=== PATIENT | female | born 1950 | race Caucasian/White ===

== ENCOUNTER 2018-06-13 21:54 | Emergency (ER) | payer OTHER ==
[~2018-06-13] VITALS: Ht 160 cm; Wt 61.1 kg
[2018-06-13 22:02] VITALS: TEMP 36.7; Ht 160 cm; Wt 61.1 kg
--- NOTE | 2018-06-13 22:39 | EMERGENCY ROOM VISIT NOTE ---
ED Visit Note First contact with patient: 22:08 I did evaluate and examine this patient myself. I did guide management for the patient. I agree with the PA's assessment as discussed. Please see the PAs dictation for further details. The patient was bitten by a stray cat on the index finger. She states that the stray cat was acting funny. She has some soft tissue swelling to the finger but no signs of overt infection. She was started on rabies immunoglobulin and a vaccination series. She was discharged on Augmentin.
[2018-06-13] MEDS ORDERED: ASPI81TA28 PO (22:42)
[2018-06-13] MEDS ORDERED: LIDODERM TOP (22:42)
[2018-06-13] MEDS ORDERED: ATOR-24 PO (22:42)
[2018-06-13] MEDS ORDERED: RANI150T3 PO (22:42)
[2018-06-13] MEDS ORDERED: CITA40TA12 PO (22:42)
[2018-06-13] MEDS ORDERED: ACET1TAB84 PO (22:42)
[2018-06-13] MEDS ORDERED: GABA-112 PO (22:42)
[2018-06-13] MEDS ORDERED: AMOX875T PO (22:44)
[2018-06-13] MEDS ORDERED: AMOXICIL/CLAVU 875MG HOME PACK PO ONE (22:45)
[2018-06-13] MEDS ORDERED: RABIES VACCINE (IMOVAX) HUMAN DIPL CELL 2.5 INTER.UNIT/ML SYR IM. ONE (22:45)
[2018-06-13] MEDS ORDERED: RABIES IMMUNE GLOBULIN (HUMAN) 150 INTER.UNIT/ML 2 ML VIAL IM. ONE (22:45)
[2018-06-13] MEDS ORDERED: DIPHTHERIA/TETANUS/PERTUSSIS 0.5 ML SYR/VIAL IM. ONE (22:45)
[2018-06-13 23:20] VITALS: BP 165/90; PULSE 67; O2SAT 97
--- NOTE | 2018-06-14 01:52 | EMERGENCY ROOM VISIT NOTE ---
History First contact with patient: 22:08 Chief Complaint: BITE Stated Complaint: BITE BY STRAY CAT History of Present Illness The patient is a 68 year old female who presents to the Emergency Room with complaints of a cat bite to her right index finger. The patient reports that she was bitten by a stray cat at a neighbor's house last night. She reports that the bite did not break the skin, but does not recall if there was any saliva on the finger. She reports that the cat was emaciated, and was walking in circles. She reports that she has multiple cats at home, and reports that the cat was exhibiting unusual behavior. When she called her neighbor this afternoon, the cat had not been back. The patient's [id number] is an ED nurse, and recommend that she come to the emergency department for evaluation for possible rabies postexposure prophylaxis. Tetanus immunization is up-to- date. The patient reports only minimal discomfort of the fingertip. She denies any prior rabies immunizations. The patient is uncertain of her last tetanus immunization. The patient is right-hand dominant. Review of Systems 10 system review was performed and was negative except for pertinent positives and negatives as indicated in history of present illness Past Medical/Surgical History Medical Problems: (1) Depression (2) Hypercholesterolemia Family History Unremarkable Social History Smoking Status: Current Every Day Smoker Current/Historical Medications Scheduled Amoxicillin & Pot Clavulanate (Augmentin 875-125 mg), 1 TAB PO BID Aspirin (Aspirin Ec), 162 MG PO DAILY Atorvastatin (Lipitor), 40 MG PO DAILY Citalopram Hydrobromide (Celexa), 40 MG PO DAILY [Lidoderm], 1 PATCH TOP DAILY Scheduled PRN Acetaminophen (Tylenol Arthritis Ext Rel), 650 MG PO BID PRN for Pain Gabapentin (Neurontin), 100 MG PO TID PRN for PRN Ranitidine Hcl (Zantac), 150 MG PO TID PRN for PRN Physical Exam Vital Signs Date Time Temp Pulse Resp B/P (MAP) Pulse Ox O2 Delivery O2 Flow Rate FiO2 06/13/18 23:20 67 16 165/90 97 Room Air 06/13/18 22:02 36.7 70 18 176/84 98 Room Air Physical Exam CONSTITUTIONAL: Healthy and well nourished. Alert and oriented X 3 with positive affect. Patient does not appear in any acute distress. HEENT: Normocephalic, atraumatic. Pupils equal, round and reactive. NECK: Full active range of motion without discomfort. RESPIRATORY: Clear to auscultation bilaterally with no wheezing, crackles, rhonchi or stridor. CARDIOVASCULAR: Regular rate and rhythm with no murmurs, rubs or gallops. MUSCULOSKELETAL: Examination of the right index fingertip shows mild edema without any overriding erythema. Close exam using an otoscope does not show any obvious puncture wounds. No ecchymosis or nail trauma noted. Capillary refill is less than 2 seconds. INTEGUMENTARY: No rash or other significant dermatologic conditions noted. NEUROLOGIC: Right index fingertip is sensory intact. Medical Decision & Procedures Medications Administered Medications (Trade) Dose Ordered Sig/Ciara Route Start Time Stop Time Status Last Admin Dose Admin Diphtheria/ Pertussis/Tetanus Vacc (Adacel Inj) 0.5 ml ONCE ONCE IM. 06/13/18 22:45 06/13/18 22:46 DC 06/13/18 23:15 0.5 ML Rabies Vaccine Human Diploid Cell (Imovax Rabies) 2.5 interunit ONCE ONCE IM. 06/13/18 22:45 06/13/18 22:46 DC 06/13/18 23:18 2.5 INTERUNIT Rabies Immune Globulin (Imogam Rabies Inj) 1,222 interunit ONCE ONCE IM. 06/13/18 22:45 06/13/18 22:46 DC 06/13/18 22:45 1,222 INTERUNIT Amoxicillin/ Clavulanate Potassium (Augmentin 875MG Home Pack) 1 homepack UD ONCE PO 06/13/18 22:45 06/13/18 22:46 DC 06/13/18 23:15 1 HOMEPACK ED Course Patient history and physical exam were performed. Nurse's notes were reviewed. Vital signs were reviewed and were normal. Although the patient does not have any evidence for puncture wounds on the fingertip, I did discuss concern with the cat's behavior, and being a feral cat, is at high risk for rabies. I also explained that exposure to the saliva is also high risk for rabies infection. I therefore recommended the post exposure prophylaxis series. The patient was provided education regarding the injection series, and risks of not proceeding if indeed she does have the infection. The patient agrees that the immunization series is in her best interest. The patient was administered Imovax and human rabies immunoglobulin 20 units/kg without adverse reaction. She was also administered Adacel IM. The patient was instructed to return on days 3, 7 and 14, sooner with any adverse reaction. The patient was also seen and examined by Dr. Rollins, ED attending physician, who also recommended Augmentin treatment. She was provided a home pack and prescription for Augmentin. The patient was happy with plan of care, voiced understanding of all discharge instructions, and denied any significant discomfort at the time of discharge. Medical Decision See previous section Blood Pressure Screening Patient's blood pressure: Elevated blood pressure Blood pressure disposition: Elevated BP felt to be situational, Did not require urgent referral Impression Primary Impression: Rabies, need for prophylactic vaccination against Additional Impression: Cat bite Departure Information Dispostion Home / Self-Care Condition FAIR Prescriptions Amoxicillin & Pot Clavulanate (Augmentin 875-125 mg) 1 Tab Tab 1 TAB PO BID for 4 Days, #8 TAB Prov: Dave Cagle PA 06/13/18 Referrals Jon Carrasco M.D. (PCP) Forms HOME CARE DOCUMENTATION FORM, IMPORTANT VISIT INFORMATION Patient Instructions My [facility] Additional Instructions Return on the following dates for your next Imovax injections: 06/16 Take Augmentin antibiotics as prescribed. Problem Qualifiers Additional Impression: Cat bite Encounter type: initial encounter Qualified Codes: W55.01XA - Bitten by cat , initial encounter
== END 2018-06-13 23:37 | disposition home or self-care (01) ==
LOC: C.EDB 21:55 → C.EDC 23:37
DX: S60.470A Other superficial bite of right index finger, initial encounter (principal); Z20.3 Contact with and (suspected) exposure to rabies; Z23 Encounter for immunization; W55.01XA Bitten by cat, initial encounter; Z79.82 Long term (current) use of aspirin; E78.00 Pure hypercholesterolemia, unspecified; F32.9 Major depressive disorder, single episode, unspecified; F17.200 Nicotine dependence, unspecified, uncomplicated

== ENCOUNTER 2018-06-16 11:49 | Emergency (ER) | payer OTHER ==
[~2018-06-16] VITALS: Ht 160 cm; Wt 62.3 kg
[~2018-06-16 11:49] MED LIST: ACET1TAB84 PO; AMOX875T PO; ASPI81TA28 PO; ATOR-24 PO; CITA40TA12 PO; GABA-112 PO; LIDODERM TOP; RANI150T3 PO
[2018-06-16 12:02] VITALS: TEMP 36.7; Ht 160 cm; Wt 62.3 kg
[2018-06-16] MEDS ORDERED: PROM12.57 PO (12:29)
[2018-06-16] MEDS ORDERED: RABIES VACCINE (IMOVAX) HUMAN DIPL CELL 2.5 INTER.UNIT/ML SYR IM. ONE (12:30)
[2018-06-16 13:10] VITALS: BP 129/75; PULSE 60; O2SAT 99
--- NOTE | 2018-06-17 15:45 | EMERGENCY ROOM VISIT NOTE ---
ED Visit Note First contact with patient: 12:06 Chief Complaint: Rabies Immunization Return Visit. History of Present Illness: Ms. Foss is a 68 year-old female who ambulates into the ED requesting her second rabies immunization after an exposure. She reports she tolerated her previous immunizations well and had no affects or symptoms. Additional she reports she is feeling well to day and denies headache , dizziness, lightheadedness, fevers, chills, sweats, skin eruptions, chest pain , shortness of breath, abdominal pain, nausea, vomiting, extremity pain, joint pain. Review of Symptoms: As noted above. Past Medical History, Current Medications, Allergies and Social History: As noted on previous visit. Physical Exam: VITAL SIGNS - Date Time Temp Pulse Resp B/P (MAP) Pulse Ox O2 Delivery O2 Flow Rate FiO2 06/16/18 13:10 60 19 129/75 99 06/16/18 12:02 36.7 64 18 134/71 98 Room Air GENERAL - Patient is in no acute distress, non-toxic appearing, afebrile and hemodynamic stable. NEUROLOGICAL: Awake, alert and oriented X3. Answering questions appropriately and following commands. SKIN - Warm, dry and pink. ED Course: Patient is assessed as noted above. Previous ED visit note was reviewed. Patient was give 2.5 units of rabies immunization IM. Patient was reassessed and had no additional symptoms. Patient was educated about today's finding and instructed on their treatment plan; they verbalized understanding and agreement with this plan. Clinical Impression: Rabies Prophylaxis. Disposition: Patient discharged to home in stable condition; prior to discharge patient subjectively reported she was asymptomatic. Plan: Patient was encouraged to continue her current treatment plan and treatment schedule as previously defined. Patient was encouraged to follow-up with family care physician or return to the ED for any adverse effects or any new/concerning symptoms.
== END 2018-06-16 13:10 | disposition home or self-care (01) ==
LOC: C.EDB 11:50 → C.EDD 13:10
DX: Z23 Encounter for immunization (principal); Z20.3 Contact with and (suspected) exposure to rabies

== ENCOUNTER 2018-06-20 11:35 | Emergency (ER) | payer OTHER ==
[~2018-06-20 11:35] MED LIST changes: -AMOX875T PO; +PROM12.57 PO
[2018-06-20] MEDS ORDERED: RABIES VACCINE (IMOVAX) HUMAN DIPL CELL 2.5 INTER.UNIT/ML SYR IM. ONE (12:00)
--- NOTE | 2018-06-20 12:11 | EMERGENCY ROOM VISIT NOTE ---
ED Visit Note First contact with patient: 11:44 CHIEF COMPLAINT: Needs third rabies vaccine HISTORY OF PRESENT ILLNESS: This 68-year-old female presents to ER for her third rabies vaccine. The patient states with the prior to vaccines she got a slight headache and nausea. She was given an antinausea medicine which she takes as needed. The patient states that she completed the antibiotics that were initially given for the Plate on her right index finger. She states the finger has healed well. REVIEW OF SYSTEMS: 6 system review was performed and was negative unless stated otherwise in history of present illness. PMH: The patient is healthy; the patient's problem list was reviewed and there are no changes. SOCIAL HISTORY: Patient lives with her . PHYSICAL EXAM: Vital Signs: Were reviewed reviewed Nurse's notes. GENERAL: 68- year-old white female appears in no acute distress. MENTAL Status: Alert and oriented 3. RIGHT INDEX FINGER: No visible puncture wound or any erythema or edema noted. EMERGENCY DEPARTMENT COURSE: The patient was evaluated. The patient was given Imovax. The patient was discharged to home in stable condition. DIAGNOSIS: Post exposure rabies prophylaxis DISCHARGE INSTRUCTIONS: Return to ER as previously directed on your prior rabies vaccine schedule. Current/Historical Medications Scheduled Aspirin (Aspirin Ec), 162 MG PO DAILY Atorvastatin (Lipitor), 40 MG PO DAILY Citalopram Hydrobromide (Celexa), 40 MG PO DAILY [Lidoderm], 1 PATCH TOP DAILY Scheduled PRN Acetaminophen (Tylenol Arthritis Ext Rel), 650 MG PO BID PRN for Pain Gabapentin (Neurontin), 100 MG PO TID PRN for PRN Promethazine (Phenergan ), 1-2 TABS PO Q6H PRN for Nausea or Vomiting Ranitidine Hcl (Zantac), 150 MG PO TID PRN for PRN Allergies Coded Allergies: Codeine (Unverified Allergy, Severe, ., 06/13/18) VERY SLEEPY AND "SEES THINGS" Vital Signs Date Time Temp Pulse Resp B/P (MAP) Pulse Ox O2 Delivery O2 Flow Rate FiO2 06/20/18 11:43 36.5 62 20 153/84 96 Room Air Medications Administered Medications (Trade) Dose Ordered Sig/Ciara Route Start Time Stop Time Status Last Admin Dose Admin Rabies Vaccine Human Diploid Cell (Imovax Rabies) 2.5 interunit ONCE ONCE IM. 06/20/18 12:00 06/20/18 12:01 DC 06/20/18 12:01 2.5 INTERUNIT Departure Information Impression Primary Impression: Rabies, need for prophylactic vaccination against Dispostion Home / Self-Care Condition GOOD Referrals Jon Carrasco M.D. (PCP) Forms WORK / SCHOOL INSTRUCTIONS, HOME CARE DOCUMENTATION FORM, IMPORTANT VISIT INFORMATION Patient Instructions My [facility] Additional Instructions Continue following rabies vaccine schedule. Return to ER as previously directed.
[2018-06-20 12:21] VITALS: BP 145/78; PULSE 61; TEMP 36.5; O2SAT 96
== END 2018-06-20 12:22 | disposition home or self-care (01) ==
LOC: C.EDB 11:36 → C.EDD 12:22
DX: Z20.3 Contact with and (suspected) exposure to rabies (principal); Z23 Encounter for immunization; Z79.82 Long term (current) use of aspirin; Z79.899 Other long term (current) drug therapy; Z88.5 Allergy status to narcotic agent

== ENCOUNTER 2018-06-27 13:48 | Emergency (ER) | payer OTHER ==
[~2018-06-27] VITALS: Ht 160 cm; Wt 62.0 kg
[~2018-06-27 13:48] MED LIST changes: -PROM12.57 PO
[2018-06-27 13:50] VITALS: TEMP 36.8; Ht 160 cm; Wt 62.0 kg
[2018-06-27] MEDS ORDERED: RABIES VACCINE (IMOVAX) HUMAN DIPL CELL 2.5 INTER.UNIT/ML SYR IM. ONE (14:00)
--- NOTE | 2018-06-27 14:02 | EMERGENCY ROOM VISIT NOTE ---
ED Visit Note First contact with patient: 13:54 CHIEF COMPLAINT: Rabies shot #4 HISTORY OF PRESENT ILLNESS: Patient is a 68-year-old female who returns to the emergency department as advised for her fourth and final rabies vaccination. She was bitten by a stray cat 2 weeks ago. She has previously noted headaches, nausea and fatigue associated with the injections. About 3 days ago, she developed some tender swelling in the left side of her neck. She has been on soup, ate a cooked egg this morning. The swelling has gone down. She denies any upper respiratory symptoms or dental source of the discomfort. REVIEW OF SYSTEMS: Review of systems as per HPI. All other systems reviewed were negative. At least 6 systems reviewed. PMH: Electronic medical records are reviewed and summarized as above/below. See Problem List. SOCIAL HISTORY: Patient lives at home. PHYSICAL EXAM: Vital Signs: Reviewed Nurse's notes. HEAD: Atraumatic, without temporal or scalp tenderness. EYES: PERRL, EOMI, no discharge or injection. SKIN: Right finger without signs of infection. LYMPHATICS: No palpable lymphadenopathy appreciated in the left cervical region. No erythema, increased warmth or induration. NEUROLOGICAL: Alert and cooperative. Sensory and motor functions grossly intact. EMERGENCY DEPARTMENT COURSE: The patient was given Imovax IM, observed and then discharged. Is unclear to me whether the soreness in the left side of her neck is related to the vaccinations or some other etiology. She was given her final vaccination and encouraged to watch for any changes in her condition was welcome to return to the emergency department at any point if her symptoms change. Medication reconciliation: I attest that I have personally reviewed the patient' s current medication list. Blood pressure screening : Patient was found to have normal blood pressure on screening and does not require follow-up. Current/Historical Medications Scheduled Aspirin (Aspirin Ec), 162 MG PO DAILY Atorvastatin (Lipitor), 40 MG PO DAILY Citalopram Hydrobromide (Celexa), 40 MG PO DAILY [Lidoderm], 1 PATCH TOP DAILY Scheduled PRN Acetaminophen (Tylenol Arthritis Ext Rel), 650 MG PO BID PRN for Pain Gabapentin (Neurontin), 100 MG PO TID PRN for PRN Ranitidine Hcl (Zantac), 150 MG PO TID PRN for PRN Allergies Coded Allergies: Codeine (Unverified Allergy, Severe, ., 06/13/18) VERY SLEEPY AND "SEES THINGS" Vital Signs Date Time Temp Pulse Resp B/P (MAP) Pulse Ox O2 Delivery O2 Flow Rate FiO2 06/27/18 13:50 36.8 66 18 148/87 95 Room Air Departure Information Impression Primary Impression: Rabies, need for prophylactic vaccination against Referrals Jon Carrasco M.D. (PCP) Patient Instructions [facility]
[2018-06-27] MEDS ORDERED: LDDP5 TOP (14:16)
[2018-06-27 14:31] VITALS: BP 180/88; PULSE 66; O2SAT 95
== END 2018-06-27 14:31 | disposition home or self-care (01) ==
LOC: C.EDB 13:49 → C.EDD 14:31
DX: Z23 Encounter for immunization (principal); Z20.3 Contact with and (suspected) exposure to rabies; Z79.82 Long term (current) use of aspirin; Z88.5 Allergy status to narcotic agent

== ENCOUNTER 2021-06-06 08:10 | Inpatient (IN) ==
[2021-06-06] MEDS ORDERED: SODIUM CHLORIDE 0.9% 1000ML 1,000 ML IV SCH (08:30)
--- NOTE | 2021-06-06 08:46 | Communication Note ---
Date of Service: June 06, 2021 This patient was seen in concert with Dr. eKlly and we discussed and agreed upon the history, physical, assessment, and plan. See attending's note for details. Resident Activity Tracking Resident Involvement: Resident Care Provided Care Provided: Adult ED
[2021-06-06 09:08] LABS: Prothrombin Time 9.7 Seconds (9.0-12.0)
[2021-06-06 09:10] LABS: Hematocrit (blood only) 24.4 % (37-47); Hemoglobin 6.8 g/dL (12.0-16.0); Mean Corpuscular Hemoglobin 20.5 pg (25-34); Mean Corpuscular Hgb Conc 27.9 g/dL (32-36); Mean Corpuscular Volume 73.7 fL (80-100); Platelet Count 305 K/uL (130-400); RDW Coefficient of Variation 19.1 % (11.5-14.5); Red Blood Count 3.31 M/uL (4.2-5.4); White Blood Count 4.74 K/uL (4.8-10.8)
[2021-06-06] MEDS ORDERED: SODIUM CHLORIDE 0.9% 250 ML IV PRN (09:11)
[2021-06-06 09:13] LABS: Blood Urea Nitrogen 11 mg/dl (7-18); Carbon Dioxide 24 mmol/L (21-32); Chloride 107 mmol/L (98-107); Est GFR (African American) 95.8 ml/min; Est GFR (Non-African American) 82.7 ml/min; Glucose 108 mg/dl (70-99); Potassium 3.8 mmol/L (3.5-5.1); Sodium 137 mmol/L (136-145)
[2021-06-06] MEDS ORDERED: PANTOPRAZOLE BOLUS/DRIP 1 EA IV STA (09:13)
[2021-06-06] MEDS ORDERED: PANTOprazole 80 MG in DEXTROSE 5% 100 ML IV ONE (09:13)
[2021-06-06 09:17] LABS: Partial Thromboplastin Ratio 0.8; Partial Thromboplastin Time < 20.0 Seconds (21.0-31.0)
[2021-06-06 09:24] LABS: Basophils # (auto) 0.03 K/uL (0-0.2); Basophils % (auto) 0.6 %; Eosinophils # (auto) 0.19 K/uL (0-0.5); Hypochromasia Present; Immature Granulocytes # (auto) 0.01 K/uL (0.00-0.02); Immature Granulocytes % (auto) 0.2 %; Lymphocytes # (auto) 1.22 K/uL (1.2-3.4); Lymphocytes % (auto) 25.7 %; Microcytosis Present; Monocytes # (auto) 0.34 K/uL (0.11-0.59); Monocytes % (auto) 7.2 %; Neutrophils # (auto) 2.95 K/uL (1.4-6.5); Neutrophils % (auto) 62.3 %
[2021-06-06] MEDS ORDERED: PANTOprazole 40 MG in DEXTROSE 5% 100 ML IV SCH (09:30)
--- NOTE | 2021-06-06 10:14 | Emergency Department Note ---
History of Present Illness General Chief Complaint: Shortness of Breath/Dyspnea Stated Complaint: LOW HEMOGLOBIN Time Seen by Provider: 06/06/21 08:16 History of Present Illness Provider Complaint: + abnormal lab Description of abnormal result: Low hemoglobin Associated symptoms: + shortness of breath (With exertion); no fever, no chills, no chest pain, no malaise, no nausea or no abdominal pain HPI narrative: 71-year-old female presents emergency department from [facility] outpatient clinic for low hemoglobin. Patient has been reported progressive fatigue and exertional dyspnea over the last few weeks. She denies any chest pain. She denies any melena hematochezia. No hematuria or vaginal bleeding. No nausea or vomiting. No fevers. Home Medications Medication Instructions Recorded Confirmed Type Lactobacillus acidophilus 10 10,000 mmu cells PO DAILY 06/06/21 06/06/21 History billion cell capsule (Probiotic) acetaminophen 650 mg 650 - 1,300 mg PO HS PRN 06/06/21 06/06/21 History tablet,extended release (Tylenol Arthritis Pain) aspirin 81 mg tablet,delayed 162 mg PO DAILY 06/06/21 06/06/21 History release atorvastatin 40 mg tablet 40 mg PO HS 06/06/21 06/06/21 History lidocaine 5 % topical patch 1 patch TRANSDERMAL HS 06/06/21 06/06/21 History Allergies Allergy/AdvReac Type Severity Reaction Status Date / Time escitalopram [From Lexapro] Allergy Unknown Verified 06/06/21 09:33 codeine AdvReac Severe Nausea and Unverified 06/06/21 09:33 Vomiting/Drowsiness/Lethargy Past Med/Surg History Medical History Depression GERD (gastroesophageal reflux disease) Hypercholesterolemia Surgical History History of appendectomy History of History of hysterectomy complete Family History Father Diabetes Mother Diabetes Myocardial infarction Grandfather (Paternal) Stomach cancer Social History Smoking Status: Current some day smoker Hx Alcohol Use: Yes Preferred Language: Pashto Communication Ability: Effective marital status: Current Living Situation: Spouse Feels Safe at Home: Yes Review of Systems A total of 10 systems reviewed and were otherwise negative Physical Exam Vital Signs: Vital Signs - 24 hr 06/06/21 08:12 06/06/21 08:52 Temperature 36.7 C Temperature Source Temporal Artery Sc an Pulse Rate 83 Respiratory Rate 18 Respiratory Effort / Characteristics Non-Labored Sponta neous Respiratory Depth Normal Respiratory Patter n Regular Blood Pressure 166/80 H Blood Pressure Britni n 108 Pulse Oximetry 97 100 Oxygen Delivery Me thod Room Air Room Air Sepsis Recent Feve r Within 48 Hours No Sepsis New/Unexpla ined Change in Men kaila Status No Sepsis Action Take n by Nursing No Action Required Physical Exam: Physical Exam GENERAL: She is oriented to person, place, and time. She appears well-developed and well-nourished. She does not appear distressed. HENT: Exam performed. -Head: Normocephalic and atraumatic. -Right Ear: External ear normal. No mastoid tenderness. -Left Ear: External ear normal. No mastoid tenderness. -Mouth/Throat: The oropharynx is clear and moist. No trismus in the jaw. No dental abscesses or uvula swelling. No oropharyngeal exudate or tonsillar abscesses. EYES: Conjunctivae and EOM are normal. Pupils are equal, round, and reactive to light. Right eye exhibits no discharge. Left eye exhibits no discharge. No scleral icterus. NECK: Normal range of motion. Neck supple. No JVD present. No spinous process tenderness present. No carotid bruit present. No rigidity. No tracheal deviation and normal range of motion present. No Brudzinski's sign and no Kernig's sign noted. CV: Normal rate, regular rhythm, normal heart sounds and intact distal pulses. There is no peripheral edema. Palpable radial pulses bue. PULM/CHEST: Effort normal and breath sounds normal. No respiratory distress. No stridor. She has no wheezes. She has no rales. -Chest Wall: She exhibits no tenderness. ABD: The abdomen is soft. Bowel sounds are normal. She has no distension. No mass is present. There is no tenderness. There is no rebound, no guarding, no Fuentes's sign and no tenderness at McBurney's point. Rovsig negative MUSC/SKEL: Normal range of motion. There is no peripheral edema, tenderness or d eformity. LYMPH: No cervical adenopathy. NEURO: She is alert and oriented to person, place, and time. She has normal strength. No cranial nerve deficit or sensory deficit. Coordination and gait normal. GCS eye subscore is 4. GCS verbal subscore is 5. GCS motor subscore is 6. Cerebellar tests wnl. SKIN: Pale PSYCH: She has a normal mood and affect. Behavior is normal. Judgment and thought content normal. Course Course 0816: The patient was evaluated in room C1. A complete history and physical exam was performed Cardiac monitoring: An order was placed for continuous cardiac monitoring. The monitor shows a rate of 80 with sinus rhythm Patient was initially seen by resident that I am supervising to prime. He performed rectal exam with female nursing musical engineer at bedside which was Hemoccult trace positive. 0930: Vital signs stable. Hemoglobin 6.8. Discussed the case with Kiera Olea PA-C who stated to admit to Dr. Grimes. Order for Protonix bolus and drip ordered. Transfusion of 2 units packed red blood cells ordered for the patient. Administered Medications Sodium Chloride (Nss 1000ml) 1,000 mls @ 125 mls/hr IV .Q8H [facility] Stop: 07/06/21 08:29 Last Admin: 06/06/21 09:47 Dose: 125 mls/hr Documented by: [id number] Pantoprazole Sodium 40 mg/ (Dextrose) 100 mls @ 20 mls/hr IV Q5H [facility] Stop: 07/06/21 09:29 Last Infusion: 06/06/21 10:00 Dose: 8 mg/hr, 20 mls/hr Documented by: [id number] Infusion: 06/06/21 09:47 Dose: 0 mg/hr, 0 mls/hr Documented by: [id number] Admin: 06/06/21 09:47 Dose: 8 mg/hr, 20 mls/hr Documented by: [id number] Discontinued Medications Pantoprazole Sodium (Protonix Bolus/Drip) 0 mls @ 1 mls/hr IV ONE STA Stop: 06/06/21 09:14 Last Admin: 06/06/21 09:48 Dose: Not Given Documented by: [id number] Pantoprazole Sodium 80 mg/ (Dextrose) 120 mls @ 400 mls/hr IV NOW ONE Stop: 06/06/21 09:30 Last Infusion: 08/03/21 10:00 Dose: 0 mls/hr Documented by: [id number] Admin: 06/06/21 09:42 Dose: 400 mls/hr Documented by: [id number] Medical Decision Making Laboratory Data Result diagrams: 06/06/21 08:48 06/06/21 08:48 Lab Results 06/06/21 06/06/21 06/06/21 Range/Units 08:48 08:48 08:48 WBC 4.74 L (4.8-10.8) K/uL RBC 3.31 L (4.2-5.4) M/uL Hgb 6.8 L* (12.0-16.0) g/dL Hct 24.4 L (37-47) % MCV 73.7 L (80-100) fL MCH 20.5 L (25-34) pg MCHC 27.9 L (32-36) g/dL RDW Std Deviation 52.0 H (36.4-46.3) fL RDW Coeff of Jessica 19.1 H (11.5-14.5) % Plt Count 305 (130-400) K/uL MPV 10.0 (7.4-10.4) fL Immature Gran % (Auto) 0.2 % Neut % (Auto) 62.3 % Lymph % (Auto) 25.7 % [place] % (Auto) 7.2 % Eos % (Auto) 4.0 % Baso % (Auto) 0.6 % Neut # (Auto) 2.95 (1.4-6.5) K/uL Lymph # (Auto) 1.22 (1.2-3.4) K/uL [place] # (Auto) 0.34 (0.11-0.59) K/uL Eos # (Auto) 0.19 (0-0.5) K/uL Baso # (Auto) 0.03 (0-0.2) K/uL Immature Gran # (Auto) 0.01 (0.00-0.02) K/uL Hypochromasia Present Microcytosis Present PT 9.7 (9.0-12.0) Seconds INR 1.0 (0.9-1.1) APTT < 20.0 L (21.0-31.0) Seconds PTT Ratio 0.8 Sodium 137 (136-145) mmol/L Potassium 3.8 (3.5-5.1) mmol/L Chloride 107 (98-107) mmol/L Carbon Dioxide 24 (21-32) mmol/L Anion Gap 6.0 (3-11) BUN 11 (7-18) mg/dl Creatinine 0.74 (0.6-1.2) mg/dl Est Cr Clr Drug Dosing Not Reportable Est GFR ( Amer) 95.8 ml/min Est GFR (Non-Af Amer) 82.7 ml/min BUN/Creatinine Ratio 15.0 (10-20) Glucose 108 H (70-99) mg/dl Calcium 9.0 (8.5-10.1) mg/dl Blood Type Blood Type Recheck Antibody Screen Crossmatch 06/06/21 06/06/21 Range/Units 08:54 09:43 WBC (4.8-10.8) K/uL RBC (4.2-5.4) M/uL Hgb (12.0-16.0) g/dL Hct (37-47) % MCV (80-100) fL MCH (25-34) pg MCHC (32-36) g/dL RDW Std Deviation (36.4-46.3) fL RDW Coeff of Jessica (11.5-14.5) % Plt Count (130-400) K/uL MPV (7.4-10.4) fL Immature Gran % (Auto) % Neut % (Auto) % Lymph % (Auto) % [place] % (Auto) % Eos % (Auto) % Baso % (Auto) % Neut # (Auto) (1.4-6.5) K/uL Lymph # (Auto) (1.2-3.4) K/uL [place] # (Auto) (0.11-0.59) K/uL Eos # (Auto) (0-0.5) K/uL Baso # (Auto) (0-0.2) K/uL Immature Gran # (Auto) (0.00-0.02) K/uL Hypochromasia Microcytosis PT (9.0-12.0) Seconds INR (0.9-1.1) APTT (21.0-31.0) Seconds PTT Ratio Sodium (136-145) mmol/L Potassium (3.5-5.1) mmol/L Chloride (98-107) mmol/L Carbon Dioxide (21-32) mmol/L Anion Gap (3-11) BUN (7-18) mg/dl Creatinine (0.6-1.2) mg/dl Est Cr Clr Drug Dosing Est GFR ( Amer) ml/min Est GFR (Non-Af Amer) ml/min BUN/Creatinine Ratio (10-20) Glucose (70-99) mg/dl Calcium (8.5-10.1) mg/dl Blood Type A Positive Blood Type Recheck A Positive Antibody Screen NEGATIVE Crossmatch See Detail ECG Data Indication: weakness Rate (beats per minute): 76 Rhythm: normal sinus Findings: no ST depression, no ST elevation or no prolonged QT MDM Narrative Vital signs stable. Hemoglobin 6.8. Discussed the case with Kiera Olea PA-C who stated to admit to Dr. Grimes. Order for Protonix bolus and drip ordered. Transfusion of 2 units packed red blood cells ordered for the patient. Impression & Plan GI bleed Critical Care Time Critical Care Time: Yes Total Critical Care Time: 43 I have personally spent greater than 43 minutes of critical care time in the direct management of this patient. This includes bedside care, interpretation of diagnostic studies, and testing, discussion with consultants, patient, and family members, and other required patient management activities. This 43 minutes is in excess of all separately billable procedures. Discharge Plan Visit Data Chief Complaint: Shortness of Breath/Dyspnea Stated Complaint: LOW HEMOGLOBIN ED Provider: Matheus Kelly ED Midlevel Provider: Galo Mendez Discharge Problem: GI bleed Patient Disposition: Admitted As Inpatient Forms Stand Alone Forms: My [facility] Prescriptions Prescriptions: No Action atorvastatin 40 mg tablet 40 mg PO HS RF: 0 aspirin 81 mg Tablet,Delayed Release (Dr/Ec) 162 mg PO DAILY RF: 0 acetaminophen [Tylenol Arthritis Pain] 650 mg Tablet Extended Release 650 - 1,300 mg PO HS PRN (Reason: sleep and pain) RF: 0 lidocaine 5 % adhesive patch,medicated 1 patch transdermal HS RF: 0 Probiotic 10 billion cell Capsule 10,000 mmu cells PO DAILY RF: 0 Referrals Referrals: Jon Carrasco MD [Primary Care Provider] - Discharge Problem: GI bleed Qualifiers: GI bleed type/associated pathology: melena Qualified Code(s): K92.1 - Melena
--- NOTE | 2021-06-06 10:19 | History & Physical Report ---
Date of Service June 06, 2021 Assessment & Plan (1) Symptomatic anemia: (2) Iron deficiency: (3) Positive fecal occult blood test: Plan: This is a 71-year-old female who has significant past medical history of hyperlipidemia, GERD, depression, chronic back pain who presents to ED secondary to shortness of breath x1 month. She has noted progressive shortness of breath over the past month, but significantly worse over the past 2 weeks. Outpatient lab work revealed hemoglobin 6.8, ferritin 5, transferrin saturation 2, TIBC 561, iron 10, reticulocyte increased at 2.3%. Last hemoglobin was from 2014 and was 13.4 with normal indices Cologuard negative in 2017, no prior history of colonoscopy, endoscopy approximately 30 years ago. She does take 2 baby aspirin's daily, but otherwise no NSAID use. 1 glass of alcohol nightly. Continues to vape nicotine, but quit smoking 3 years ago. She is hemodynamically stable so suspect a chronic anemia with symptoms persisting over the past month. Per ED provider, "trace," positive Hemoccult in ED. ddx: GIB, colorectal or gastric malignancy, celiac disease, pure nutritional deficiency, hemoglobinopathy, insufficient resorption, myeloproliferative disorder and among other etiologies Admit to PCU Consult GI -discussed with YIMI Mancini PPI IV twice daily -if patient were to develop melena switch back to drip Clear liquid diet N.p.o. after midnight until formally seen by GI and timing of scope decided -Per GI possibly not until 06/08 Transfuse 2 units, 40 mg of IV Lasix in between Repeat hemoglobin after transfusion Bedrest with bathroom privileges until hemoglobin stabilized will start ferrous sulfate with vitamin C bid -consider Venofer infusion once hemoglobin stabilized Check reticulocyte count, LDH, haptoglobin, TSH with T4, LFTs, b12, folate and urinalysis Nicotine Dependence w/ prior hx of tobacco abuse quit smoking 3 years ago continues to vape nicotine daily discussed nicotine patch, pt declines currently Alcohol dependence has 4 oz of white wine nightly to help with back pain AWSS protocol for monitoring HLD continue statin Elevated FBS 108 a1c in am. DVT ppx: SCD/TEDS Dispo: PCU PCP: Danilo FULL CODE Pt was seen and examined in collaboration with Dr. Grimes, please see addendum History of Present Illness Chief Complaint: Shortness of breath x1 month. Primary Care Provider: Jon Carrasco MD This is a 71-year-old female who has significant past medical history of hyperlipidemia, GERD, depression, chronic back pain who presents to ED secondary to shortness of breath x1 month. She has noted progressive shortness of breath over the past month, but significantly worse over the past 2 weeks. Yesterday she was making dinner and just walking [id number] from the table which caused her to be short of breath. She also complains of extreme fatigue that she has never experienced in the past. She was seen and evaluated by PCP yesterday who did lab work which revealed a critical hemoglobin of 6.8 and severe iron deficiency with a ferritin of 5. She was recommended to go to ER for transfusion and further work-up. She denies any recent fever, chills, sweats, lightheadedness, dizziness, syncope, chest pain, cough, hemoptysis, emesis, abdominal pain, melena, hematochezia, dysuria, increased urgency or frequency with urination or hematuria. She does admit to being nauseated yesterday but felt that was secondary to the stress of her illness. She denies any weight loss and admits to gaining 20 pounds approximately 2 years ago after being started on gabapentin for her back pain. She has been unable to get off the 20 pounds and she gained it. She denies any prior history of colonoscopy but did have an endoscopy approximately 30 years ago. Denies any history of peptic ulcer disease. She did have a Cologuard in 2017 which was negative. Positive family history of stomach cancer but denies any history of colon cancer. She tries to reduce her red meat intake but denies being vegetarian or vegan. She states she feels she has a history of IBS secondary to having 3 bowel movements daily. Occasionally bowel movements are mucousy. She denies any formal work-up for this. In ED patient remained hemodynamically stable. Her hemoglobin was confirmed at 6.8 with significant microcytosis. She also had mild reduction in her white blood cell count of 4.74. Her BMP was generally unremarkable except for a mild elevated glucose at 108. In ED she was typed and crossed and Per ED provider her FOBT was positive. She was crossed for 2 units. She did have a couple coffee this morning but otherwise has not had anything to eat. She does take 2 baby aspirin daily preventatively, denies history of coronary artery disease or cerebrovascular disease. She denies taking any NSAIDs or Motrin daily. She does have 4 ounce glass of wine nightly. Allergies Allergy/AdvReac Type Severity Reaction Status Date / Time codeine AdvReac Severe Nausea and Unverified 06/06/21 09:33 Vomiting/Drowsiness/Lethargy escitalopram [From Lexapro] AdvReac Intermediate Brain Verified 06/06/21 10:20 Foggieness/Shakiness Home Medications Medication Instructions Recorded Confirmed Type Lactobacillus acidophilus 10 10,000 mmu cells PO DAILY 06/06/21 06/06/21 History billion cell capsule (Probiotic) acetaminophen 650 mg 650 - 1,300 mg PO HS PRN 06/06/21 06/06/21 History tablet,extended release (Tylenol Arthritis Pain) aspirin 81 mg tablet,delayed 162 mg PO DAILY 06/06/21 06/06/21 History release atorvastatin 40 mg tablet 40 mg PO HS 06/06/21 06/06/21 History lidocaine 5 % topical patch 1 patch TRANSDERMAL HS 06/06/21 06/06/21 History Past Med/Surg History Medical History Depression GERD (gastroesophageal reflux disease) Hypercholesterolemia Surgical History History of appendectomy History of History of hysterectomy complete Family History Father Diabetes Mother Diabetes Myocardial infarction Grandfather (Paternal) Stomach cancer Social History (Updated 06/06/21 @ 10:25 by Kiera Godoy PA-C) Smoking Status: Former smoker Tobacco Type: Cigarettes and E-cigarettes / Vaping Number of Years Since Quit: 3; Hx Alcohol Use: Yes Alcohol type: wine Alcohol Intake Frequency Comment: 4 ounces at night Preferred Language: Cook Islander Communication Ability: Effective marital status: Current Living Situation: Spouse Feels Safe at Home: Yes Review of Systems Review of Systems: All systems reviewed & are unremarkable except as noted in HPI & below Physical Exam Physical Exam: Constitutional: WD/WN, female, pale, vitals as above, NAD, sitting up in bed, pleasant, conversing easily Head: Normocephalic, Atraumatic Eyes: PERRL, conjunctivae normal, anicteric sclerae ENMT: external ear and nose normal, oropharynx normal Neck: trachea midline, no thyromegaly normal visual inspection Respiratory: normal respiratory effort, lungs clear to auscultation, no wheeze, rales, rhonchi. Normal insp/exp effort, no accessory muscle use Cardiovascular: RRR, 1/6 ROBERTO noted RUSB, suspect flow murmur secondary to anemia, no edema Vessels: no JVD or carotid bruit Chest: normal inspection of chest Abdomen: normal bowel sounds, soft, nontender, no hepatosplenomegaly Musculoskeletal: no cyanosis or clubbing, extremities motor strength 5/5 Skin: no rashes, warm and dry normal turgor Neurologic: PERRL, EOMI, accommodation nl, no face palsy, no dysarthria CN's II-XI intact bilaterally and moves all extremities Psychiatric: A+Ox3, euthymic affect Lymphatic: no cervical or axillary lymphadenopathy : deferred Results & Data Results & Data ([facility]) Vital Signs (Past 12 Hours) Vital Signs Temp Pulse Resp BP Pulse Ox 06/06/21 08:52 100 06/06/21 08:12 36.7 C 83 18 166/80 H 97 Medications Administered Medication List Sodium Chloride (Nss 1000ml) 1,000 mls @ 125 mls/hr IV .Q8H [facility] Stop: 07/06/21 08:29 Last Admin: 06/06/21 09:47 Dose: 125 mls/hr Documented by: [id number] Pantoprazole Sodium 40 mg/ (Dextrose) 100 mls @ 20 mls/hr IV Q5H [facility] Stop: 07/06/21 09:29 Last Infusion: 06/06/21 10:00 Dose: 8 mg/hr, 20 mls/hr Documented by: [id number] Infusion: 06/06/21 09:47 Dose: 0 mg/hr, 0 mls/hr Documented by: [id number] Admin: 06/06/21 09:47 Dose: 8 mg/hr, 20 mls/hr Documented by: [id number] Discontinued Medications Pantoprazole Sodium (Protonix Bolus/Drip) 0 mls @ 1 mls/hr IV ONE STA Stop: 06/06/21 09:14 Last Admin: 06/06/21 09:48 Dose: Not Given Documented by: [id number] Pantoprazole Sodium 80 mg/ (Dextrose) 120 mls @ 400 mls/hr IV NOW ONE Stop: 06/06/21 09:30 Last Infusion: 06/06/21 10:00 Dose: 0 mls/hr Documented by: [id number] Admin: 06/06/21 09:42 Dose: 400 mls/hr Documented by: [id number] ECG Indication: SOB/dyspnea Rate (beats per minute): 76 Rhythm: normal sinus Additional Comments: QTC 465ms COVID-19 Results Results COVID-19 Adm Lab Results: RBC 3.31 M/uL (4.2-5.4) L 06/06/21 WBC 4.74 K/uL (4.8-10.8) L 06/06/21 Hgb 6.8 g/dL (12.0-16.0) L* 06/06/21 Hct 24.4 % (37-47) L 06/06/21 Plt Count 305 K/uL (130-400) 06/06/21 Neutrophils (%) (Auto) 62.3 % 06/06/21 Lymphocytes (%) (Auto) 25.7 % 06/06/21 Monocytes # (Auto) 0.34 K/uL (0.11-0.59) 06/06/21 Eosinophils # (Auto) 0.19 K/uL (0-0.5) 06/06/21 Immature Granulocyte % (Auto) 0.2 % 06/06/21 Neutrophils # (Auto) 2.95 K/uL (1.4-6.5) 06/06/21 Lymphocytes # (Auto) 1.22 K/uL (1.2-3.4) 06/06/21 Monocytes # (Auto) 0.34 K/uL (0.11-0.59) 06/06/21 Eosinophils # (Auto) 0.19 K/uL (0-0.5) 06/06/21 Basophils # (Auto) 0.03 K/uL (0-0.2) 06/06/21 Immature Granulocyte # (Auto) 0.01 K/uL (0.00-0.02) 06/06/21 Hypochromasia Present 06/06/21 Microcytosis Present 06/06/21 Na 137 mmol/L (136-145) 06/06/21 K 3.8 mmol/L (3.5-5.1) 06/06/21 Cl 107 mmol/L (98-107) 06/06/21 CO2 24 mmol/L (21-32) 06/06/21 Anion Gap 6.0 (3-11) 06/06/21 BUN 11 mg/dl (7-18) 06/06/21 Creatinine 0.74 mg/dl (0.6-1.2) 06/06/21 BUN/Creatinine Ratio 15.0 (10-20) 06/06/21 Glucose Level 108 mg/dl (70-99) H 06/06/21 Ca 9.0 mg/dl (8.5-10.1) 06/06/21 Total Bilirubin 0.5 mg/dl (0.2-1) 06/06/21 Direct Bilirubin 0.1 mg/dl (0-0.2) 06/06/21 AST/SGOT 13 U/L (15-37) L 06/06/21 ALT/SGPT 20 U/L (12-78) 06/06/21 Alkaline Phosphatase 72 U/L (45-117) 06/06/21 Total Protein 7.6 gm/dl (6.4-8.2) 06/06/21 Albumin 3.6 gm/dl (3.4-5.0) 06/06/21 LDH Pending 06/06/21 PTT < 20.0 Seconds (21.0-31.0) L 06/06/21 INR 1.0 (0.9-1.1) 06/06/21 COVID-19 PCR NEGATIVE (Negative) 06/06/21 Code Status & VTE Plan Code Status Full code VTE Prophylaxis Plan VTE Prophylaxis will be ordered: Yes Supervising Physician Co-Signing Physician Notes Attending addendum: The patient was seen and examined in the emergency room in presence of the She has been complaining of shortness of breath with exertion for the last 1 month and the condition has gotten worse for the last 2 days Denies any chest pain and/or palpitation, any abdominal pain, nausea and or vomiting and no change in her stool and or bowel habit Noted to have very low hemoglobin at 6.8 with low iron studies On examination Pale looking lying in bed without any acute distress Noted to have high blood pressure at 175/93 Chestclear to auscultate bilaterally HeartS1-S2, regular no murmur appreciated Abdomensoft, no organomegaly and bowel sound present. Stool is negative for any blood Extremitiesnegative for any edema CNSalert, awake and oriented x3. No focal sensory and motor deficit appreciated Her admission labs, EKG and imaging studies reviewed Has significant iron deficiency anemia without any obvious blood loss identified Likely secondary to use of aspirin with chronic upper GI bleed, rule out to rule out colonic origin Will transfuse 2 units of PRBC GI consulted for possible upper and lower endoscopy Agree with assessment and plan as outlined above by KIARA Amador Dr
[2021-06-06 11:23] LABS: Albumin Level 3.6 gm/dl (3.4-5.0); Bilirubin Direct 0.1 mg/dl (0-0.2); Bilirubin,Total 0.5 mg/dl (0.2-1); Total Protein 7.6 gm/dl (6.4-8.2)
[2021-06-06 11:29] LABS: Reticulocyte % 1.8 % (0.5-2.0); Reticulocytes # 0.06 10^6/uL (0.02-0.10)
[2021-06-06 11:57] LABS: Folate (Folic Acid) 13.5 ng/ml (>5.38)
[2021-06-06] MEDS ORDERED: FUROSEMIDE 40 MG/4 ML VIAL IV SCH (12:00)
--- NOTE | 2021-06-06 12:45 | XRay Report ---
XR chest 1V portable HISTORY: 71 years-old Female admission preoperative exam. No acute chest complaints COMPARISON: None TECHNIQUE: Portable AP view of the chest FINDINGS: Cardiac silhouette is enlarged. The patient is mildly rotated. No pneumothorax, pleural effusion, air space consolidation or overt pulmonary edema. Pulmonary hyperinflation. A 1.7 cm nodular opacity proj ects over the left upper lung. There is a linear 1.5 cm opacity of the left lung base which may be ar tifactual/external to the patient. Degenerative changes of the shoulders and spine with mid thoracic dextroscoliosis. IMPRESSION: 1. Hyperinflation without acute process. 2. Cardiomegaly. 3. Indeterminate 1.7 cm linear nodular opacity of the left upper lung. ACT 112: Negative or not required by law. The above report was generated using voice recognition software. It may contain grammatical, syntax o r spelling errors. Electronically signed by: Dallin Arthur M.D. 06/06/2021 12:44 PM
--- NOTE | 2021-06-06 13:47 | Gastrointestinal Consultation ---
Date of Consultation June 06, 2021 Assessment & Plan (1) Iron deficiency: 71 year old female admitted ,symptomatic MARILU, HGB 6.8 w/ positve occult stool w/o evidence of active GI blood loss Transfuse per primary service PO PPI once daily Monitor and document stools Clear liquids today Start bowel prep tomorrow EGD/Colon 06/08 (2) Positive fecal occult blood test: Supervising Physician Co-Signing Physician Notes Late Entry: Patient was seen and examined on 06/06 with YIMI Frias whose note reflects our findings and plan. Iron def anemia. no overt s/s of bleeding. Abd exam is benign. EGD and colonoscopy to be done on History of Present Illness Reason for Consultation: anemia Requesting Physician: Walt Attending Physician: Walt History of Present Illness 71 year old female w/ history of GERD, depression, chronic back pain who presents to ED secondary to shortness of breath x1 month. She has noted progressive shortness of breath over the past month, but significantly worse over the past 2 weeks - GI asked to evaluate for MARILU. seen in ED, daughter at bedside. [place] from GI standpoint. Chronic GERD, controlled on Pepcid and lifestyle changes. Denies abd pain. No nausea, vomiting. No dysphagia. Has IBS - diarrhea/constipation but no recent campa in bowel habits. Has some darker stools when she eats a lot of fresh veggies but denies black or bloody stools. Weight stable. Very active. No fever, chills, CP, SOB. HGB 6 No BUN elevation Low iron stores EGD/Colon 30+ years ago Allergies Allergy/AdvReac Type Severity Reaction Status Date / Time latex Allergy Rash Verified 06/06/21 19:08 codeine AdvReac Severe Nausea and Unverified 06/06/21 09:33 Vomiting/Drowsiness/Lethargy escitalopram [From Lexapro] AdvReac Intermediate Brain Verified 06/06/21 10:20 Foggieness/Shakiness Home Medications Medication Instructions Recorded Confirmed Type Lactobacillus acidophilus 10 10,000 mmu cells PO DAILY 06/06/21 06/06/21 History billion cell capsule (Probiotic) acetaminophen 650 mg 650 - 1,300 mg PO HS PRN 06/06/21 06/06/21 History tablet,extended release (Tylenol Arthritis Pain) aspirin 81 mg tablet,delayed 162 mg PO DAILY 06/06/21 06/06/21 History release atorvastatin 40 mg tablet 40 mg PO HS 06/06/21 06/06/21 History lidocaine 5 % topical patch 1 patch TRANSDERMAL HS 06/06/21 06/06/21 History Patient History Medical History Depression GERD (gastroesophageal reflux disease) Hypercholesterolemia Surgical History History of appendectomy History of History of hysterectomy complete Family History Father Diabetes Mother Diabetes Myocardial infarction Grandfather (Paternal) Stomach cancer Social History (Updated 06/06/21 @ 10:25 by Kiera Godoy PA-C) Smoking Status: Current every day smoker Tobacco Type: Cigarettes and E-cigarettes / Vaping Number of Years Since Quit: 3; Hx Alcohol Use: Yes Alcohol type: wine Alcohol Intake Frequency Comment: 4 ounces at night Hx Substance Use: No Preferred Language: [place] Communication Ability: Effective Telecommunications Manager Required: No Beliefs That Will Affect Care: None marital status: Current Living Situation: Spouse Other Information That Helps Us Care for You: No Feels Safe at Home: Yes Safety Concerns: Feels Safe At This Time Assistive Devices: Glasses Review of Systems Review of Systems: All systems reviewed & are unremarkable except as noted in HPI & below Physical Exam Constitutional: WD/WN, vitals as above Respiratory: normal respiratory effort, lungs clear to auscultation Gastrointestinal (Abdomen): normal bowel sounds, soft, nontender, no hepatosplenomegaly Skin: pale, no edema Results & Data ([facility]) Vital Signs (Past 12 Hours) Vital Signs Temp Pulse Resp BP Pulse Ox 06/06/21 12:30 36.8 C 70 19 155/72 H 99 06/06/21 12:00 37 C 70 18 152/78 H 98 06/06/21 11:45 36.9 C 72 20 147/64 H 97 06/06/21 11:30 36.9 C 76 20 175/93 H 99 06/06/21 11:02 79 19 97 06/06/21 10:30 71 16 164/85 H 99 06/06/21 10:00 81 17 187/84 H 99 06/06/21 09:30 70 16 06/06/21 09:00 67 21 06/06/21 08:52 100 06/06/21 08:30 79 15 98 06/06/21 08:27 78 15 99 06/06/21 08:17 99 06/06/21 08:12 36.7 C 83 18 166/80 H 97 Laboratory Results 06/06/21 06/06/21 06/06/21 Range/Units 10:46 10:46 10:46 WBC (4.8-10.8) K/uL RBC (4.2-5.4) M/uL Hgb (12.0-16.0) g/dL Hct (37-47) % MCV (80-100) fL MCH (25-34) pg MCHC (32-36) g/dL RDW Std Deviation (36.4-46.3) fL RDW Coeff of Jessica (11.5-14.5) % Plt Count (130-400) K/uL MPV (7.4-10.4) fL Immature Gran % (Auto) % Neut % (Auto) % Lymph % (Auto) % [place] % (Auto) % Eos % (Auto) % Baso % (Auto) % Reticulocyte % (Auto) (0.5-2.0) % Neut # (Auto) (1.4-6.5) K/uL Lymph # (Auto) (1.2-3.4) K/uL [place] # (Auto) (0.11-0.59) K/uL Eos # (Auto) (0-0.5) K/uL Baso # (Auto) (0-0.2) K/uL Reticulocyte # (0.02-0.10) 10^6/uL Immature Gran # (Auto) (0.00-0.02) K/uL Hypochromasia Microcytosis Haptoglobin Pending PT (9.0-12.0) Seconds INR (0.9-1.1) APTT (21.0-31.0) Seconds PTT Ratio Sodium (136-145) mmol/L Potassium (3.5-5.1) mmol/L Chloride (98-107) mmol/L Carbon Dioxide (21-32) mmol/L Anion Gap (3-11) BUN (7-18) mg/dl Creatinine (0.6-1.2) mg/dl Est Cr Clr Drug Dosing Est GFR ( Amer) ml/min Est GFR (Non-Af Amer) ml/min BUN/Creatinine Ratio (10-20) Glucose (70-99) mg/dl Calcium (8.5-10.1) mg/dl Total Bilirubin (0.2-1) mg/dl Direct Bilirubin (0-0.2) mg/dl AST (15-37) U/L ALT (12-78) U/L Alkaline Phosphatase (45-117) U/L Lactate Dehydrogenase (84-246) U/L Total Protein (6.4-8.2) gm/dl Albumin (3.4-5.0) gm/dl Vitamin B12 584 (193-986) pg/ml Folate 13.50 (>5.38) ng/ml TSH 0.862 (0.300-4.500) uIu/ml COVID-19 Eval Order SARS-CoV-2 (PCR) (Negative) Blood Type Blood Type Recheck Antibody Screen Crossmatch 06/06/21 06/06/21 06/06/21 Range/Units 10:46 10:46 10:46 WBC (4.8-10.8) K/uL RBC (4.2-5.4) M/uL Hgb (12.0-16.0) g/dL Hct (37-47) % MCV (80-100) fL MCH (25-34) pg MCHC (32-36) g/dL RDW Std Deviation (36.4-46.3) fL RDW Coeff of Jessica (11.5-14.5) % Plt Count (130-400) K/uL MPV (7.4-10.4) fL Immature Gran % (Auto) % Neut % (Auto) % Lymph % (Auto) % [place] % (Auto) % Eos % (Auto) % Baso % (Auto) % Reticulocyte % (Auto) 1.8 (0.5-2.0) % Neut # (Auto) (1.4-6.5) K/uL Lymph # (Auto) (1.2-3.4) K/uL [place] # (Auto) (0.11-0.59) K/uL Eos # (Auto) (0-0.5) K/uL Baso # (Auto) (0-0.2) K/uL Reticulocyte # 0.06 (0.02-0.10) 10^6/uL Immature Gran # (Auto) (0.00-0.02) K/uL Hypochromasia Microcytosis Haptoglobin PT (9.0-12.0) Seconds INR (0.9-1.1) APTT (21.0-31.0) Seconds PTT Ratio Sodium (136-145) mmol/L Potassium (3.5-5.1) mmol/L Chloride (98-107) mmol/L Carbon Dioxide (21-32) mmol/L Anion Gap (3-11) BUN (7-18) mg/dl Creatinine (0.6-1.2) mg/dl Est Cr Clr Drug Dosing Est GFR ( Amer) ml/min Est GFR (Non-Af Amer) ml/min BUN/Creatinine Ratio (10-20) Glucose (70-99) mg/dl Calcium (8.5-10.1) mg/dl Total Bilirubin 0.5 (0.2-1) mg/dl Direct Bilirubin 0.1 (0-0.2) mg/dl AST 13 L (15-37) U/L ALT 20 (12-78) U/L Alkaline Phosphatase 72 (45-117) U/L Lactate Dehydrogenase 166 (84-246) U/L Total Protein 7.6 (6.4-8.2) gm/dl Albumin 3.6 (3.4-5.0) gm/dl Vitamin B12 (193-986) pg/ml Folate (>5.38) ng/ml TSH (0.300-4.500) uIu/ml COVID-19 Eval Order SARS-CoV-2 (PCR) (Negative) Blood Type Blood Type Recheck Antibody Screen Crossmatch 06/06/21 06/06/21 06/06/21 Range/Units 10:02 10:02 09:43 WBC (4.8-10.8) K/uL RBC (4.2-5.4) M/uL Hgb (12.0-16.0) g/dL Hct (37-47) % MCV (80-100) fL MCH (25-34) pg MCHC (32-36) g/dL RDW Std Deviation (36.4-46.3) fL RDW Coeff of Jessica (11.5-14.5) % Plt Count (130-400) K/uL MPV (7.4-10.4) fL Immature Gran % (Auto) % Neut % (Auto) % Lymph % (Auto) % [place] % (Auto) % Eos % (Auto) % Baso % (Auto) % Reticulocyte % (Auto) (0.5-2.0) % Neut # (Auto) (1.4-6.5) K/uL Lymph # (Auto) (1.2-3.4) K/uL [place] # (Auto) (0.11-0.59) K/uL Eos # (Auto) (0-0.5) K/uL Baso # (Auto) (0-0.2) K/uL Reticulocyte # (0.02-0.10) 10^6/uL Immature Gran # (Auto) (0.00-0.02) K/uL Hypochromasia Microcytosis Haptoglobin PT (9.0-12.0) Seconds INR (0.9-1.1) APTT (21.0-31.0) Seconds PTT Ratio Sodium (136-145) mmol/L Potassium (3.5-5.1) mmol/L Chloride (98-107) mmol/L Carbon Dioxide (21-32) mmol/L Anion Gap (3-11) BUN (7-18) mg/dl Creatinine (0.6-1.2) mg/dl Est Cr Clr Drug Dosing Est GFR ( Amer) ml/min Est GFR (Non-Af Amer) ml/min BUN/Creatinine Ratio (10-20) Glucose (70-99) mg/dl Calcium (8.5-10.1) mg/dl Total Bilirubin (0.2-1) mg/dl Direct Bilirubin (0-0.2) mg/dl AST (15-37) U/L ALT (12-78) U/L Alkaline Phosphatase (45-117) U/L Lactate Dehydrogenase (84-246) U/L Total Protein (6.4-8.2) gm/dl Albumin (3.4-5.0) gm/dl Vitamin B12 (193-986) pg/ml Folate (>5.38) ng/ml TSH (0.300-4.500) uIu/ml COVID-19 Eval Order Covid19 at [facility] SARS-CoV-2 (PCR) NEGATIVE (Negative) Blood Type Blood Type Recheck A Positive Antibody Screen Crossmatch 06/06/21 06/06/21 06/06/21 Range/Units 08:54 08:48 08:48 WBC (4.8-10.8) K/uL RBC (4.2-5.4) M/uL Hgb (12.0-16.0) g/dL Hct (37-47) % MCV (80-100) fL MCH (25-34) pg MCHC (32-36) g/dL RDW Std Deviation (36.4-46.3) fL RDW Coeff of Jessica (11.5-14.5) % Plt Count (130-400) K/uL MPV (7.4-10.4) fL Immature Gran % (Auto) % Neut % (Auto) % Lymph % (Auto) % [place] % (Auto) % Eos % (Auto) % Baso % (Auto) % Reticulocyte % (Auto) (0.5-2.0) % Neut # (Auto) (1.4-6.5) K/uL Lymph # (Auto) (1.2-3.4) K/uL [place] # (Auto) (0.11-0.59) K/uL Eos # (Auto) (0-0.5) K/uL Baso # (Auto) (0-0.2) K/uL Reticulocyte # (0.02-0.10) 10^6/uL Immature Gran # (Auto) (0.00-0.02) K/uL Hypochromasia Microcytosis Haptoglobin PT 9.7 (9.0-12.0) Seconds INR 1.0 (0.9-1.1) APTT < 20.0 L (21.0-31.0) Seconds PTT Ratio 0.8 Sodium 137 (136-145) mmol/L Potassium 3.8 (3.5-5.1) mmol/L Chloride 107 (98-107) mmol/L Carbon Dioxide 24 (21-32) mmol/L Anion Gap 6.0 (3-11) BUN 11 (7-18) mg/dl Creatinine 0.74 (0.6-1.2) mg/dl Est Cr Clr Drug Dosing Not Reportable Est GFR ( Amer) 95.8 ml/min Est GFR (Non-Af Amer) 82.7 ml/min BUN/Creatinine Ratio 15.0 (10-20) Glucose 108 H (70-99) mg/dl Calcium 9.0 (8.5-10.1) mg/dl Total Bilirubin (0.2-1) mg/dl Direct Bilirubin (0-0.2) mg/dl AST (15-37) U/L ALT (12-78) U/L Alkaline Phosphatase (45-117) U/L Lactate Dehydrogenase (84-246) U/L Total Protein (6.4-8.2) gm/dl Albumin (3.4-5.0) gm/dl Vitamin B12 (193-986) pg/ml Folate (>5.38) ng/ml TSH (0.300-4.500) uIu/ml COVID-19 Eval Order SARS-CoV-2 (PCR) (Negative) Blood Type A Positive Blood Type Recheck Antibody Screen NEGATIVE Crossmatch See Detail 06/06/21 Range/Units 08:48 WBC 4.74 L (4.8-10.8) K/uL RBC 3.31 L (4.2-5.4) M/uL Hgb 6.8 L* (12.0-16.0) g/dL Hct 24.4 L (37-47) % MCV 73.7 L (80-100) fL MCH 20.5 L (25-34) pg MCHC 27.9 L (32-36) g/dL RDW Std Deviation 52.0 H (36.4-46.3) fL RDW Coeff of Jessica 19.1 H (11.5-14.5) % Plt Count 305 (130-400) K/uL MPV 10.0 (7.4-10.4) fL Immature Gran % (Auto) 0.2 % Neut % (Auto) 62.3 % Lymph % (Auto) 25.7 % [place] % (Auto) 7.2 % Eos % (Auto) 4.0 % Baso % (Auto) 0.6 % Reticulocyte % (Auto) (0.5-2.0) % Neut # (Auto) 2.95 (1.4-6.5) K/uL Lymph # (Auto) 1.22 (1.2-3.4) K/uL [place] # (Auto) 0.34 (0.11-0.59) K/uL Eos # (Auto) 0.19 (0-0.5) K/uL Baso # (Auto) 0.03 (0-0.2) K/uL Reticulocyte # (0.02-0.10) 10^6/uL Immature Gran # (Auto) 0.01 (0.00-0.02) K/uL Hypochromasia Present Microcytosis Present Haptoglobin PT (9.0-12.0) Seconds INR (0.9-1.1) APTT (21.0-31.0) Seconds PTT Ratio Sodium (136-145) mmol/L Potassium (3.5-5.1) mmol/L Chloride (98-107) mmol/L Carbon Dioxide (21-32) mmol/L Anion Gap (3-11) BUN (7-18) mg/dl Creatinine (0.6-1.2) mg/dl Est Cr Clr Drug Dosing Est GFR ( Amer) ml/min Est GFR (Non-Af Amer) ml/min BUN/Creatinine Ratio (10-20) Glucose (70-99) mg/dl Calcium (8.5-10.1) mg/dl Total Bilirubin (0.2-1) mg/dl Direct Bilirubin (0-0.2) mg/dl AST (15-37) U/L ALT (12-78) U/L Alkaline Phosphatase (45-117) U/L Lactate Dehydrogenase (84-246) U/L Total Protein (6.4-8.2) gm/dl Albumin (3.4-5.0) gm/dl Vitamin B12 (193-986) pg/ml Folate (>5.38) ng/ml TSH (0.300-4.500) uIu/ml COVID-19 Eval Order SARS-CoV-2 (PCR) (Negative) Blood Type Blood Type Recheck Antibody Screen Crossmatch
[2021-06-06] MEDS ORDERED: NICOTINE 14 MG/24 HR PATCH TD PRN (14:34)
[2021-06-06] MEDS ORDERED: MAGNESIUM HYDROXIDE SUSP 30 ML UDC PO PRN (14:34)
[2021-06-06] MEDS ORDERED: ALUMINUM/MAGNESIUM SUSP 30 ML UDC PO PRN (14:34)
[2021-06-06] MEDS ORDERED: ACETAMINOPHEN 325 MG TAB PO PRN (14:34)
[2021-06-06] MEDS ORDERED: POLYETHYLENE (MIRALAX) 17 GM PACK PO PRN (14:34)
[2021-06-06 15:00] LABS: Hematocrit (blood only) 26.9 % (37-47); Hemoglobin 7.9 g/dL (12.0-16.0)
[2021-06-06 16:19] LABS: Appearance Urine Clear (Clear); Bilirubin Urine Negative (Negative); Blood Urine Negative (Negative); Color Urine Yellow; Glucose Urine UA Negative (Negative); Ketones Urine Negative (Negative); Leukocyte Esterase Urine Negative (Negative); Nitrite Urine Negative (Negative); Protein Urine Negative (Negative); Specific Gravity Urine 1.008 (1.000-1.030); Urobilinogen Urine Negative (Negative); pH Urine 7.5 (4.5-7.5)
[2021-06-06] MEDS: FERROUS SULFATE 325 MG TAB PO SCH (18:04)
[2021-06-06] MEDS: ASCORBIC ACID 500 MG TAB PO SCH (18:04)
[2021-06-06 18:34] LABS: Hemoglobin 9.8 g/dL (12.0-16.0)
[2021-06-06] MEDS ORDERED: PANTOprazole 40 MG in SYRINGE 0 ML IV SCH (21:00)
[2021-06-06] MEDS: LIDOCAINE 5% 1 PATCH TD SCH (21:02)
[2021-06-06] MEDS: ATORVASTATIN 40 MG TAB PO SCH (21:03)
[2021-06-07 06:08] LABS: Hematocrit (blood only) 34.2 % (37-47); Hemoglobin 10.5 g/dL (12.0-16.0); Mean Corpuscular Hgb Conc 30.7 g/dL (32-36); Mean Platelet Volume 9.9 fL (7.4-10.4); Platelet Count 288 K/uL (130-400); RDW Coefficient of Variation 18.9 % (11.5-14.5); RDW Standard Deviation 51.9 fL (36.4-46.3); Red Blood Count 4.56 M/uL (4.2-5.4); White Blood Count 7.48 K/uL (4.8-10.8)
[2021-06-07 06:39] LABS: Albumin Level 4.1 gm/dl (3.4-5.0); BUN Creatinine Ratio 13.1 (10-20); Calcium 9.1 mg/dl (8.5-10.1); Creatinine Clr Calc Pharmacy 61.1 ml/min; Est GFR (African American) 89.9 ml/min; Est GFR (Non-African American) 77.6 ml/min; Magnesium 2.4 mg/dl (1.8-2.4); Potassium 3.3 mmol/L (3.5-5.1)
[2021-06-07 06:43] LABS: Bilirubin,Total 1.8 mg/dl (0.2-1); Globulin 4.3 gm/dl (2.5-4.0); Total Protein 8.4 gm/dl (6.4-8.2)
[2021-06-07 07:13] LABS: Estimated Average Glucose 117 mg/dl; Hemoglobin A1C 5.7 % (4.5-5.6)
[2021-06-07] MEDS: FERROUS SULFATE 325 MG TAB PO SCH ×2 (07:34→17:08)
[2021-06-07] MEDS: PANTOprazole 40 MG TAB PO SCH (07:34)
[2021-06-07] MEDS: ASCORBIC ACID 500 MG TAB PO SCH ×2 (07:34→17:08)
[2021-06-07] MEDS ORDERED: POTASSIUM CHLORIDE CRTAB 20 MEQ TABCR PO STA (08:09)
--- NOTE | 2021-06-07 08:40 | Gastroenterology Progress Note ---
Date of Service June 07, 2021 Assessment & Plan (1) Iron deficiency: Plan: 71 year old female admitted ,symptomatic MARILU, HGB 6.8 w/ positive occult stool w/o evidence of active GI blood loss Transfuse per primary service PO PPI once daily Monitor and document stools Clear liquids today Start bowel prep today NPO after midnight EGD/Colon 06/08 Thank you for allowing us to participate in the care of this patient. Please call with any acute changes, questions or concerns. Please see addendum below with additional recommendation from my supervising physician. (2) Positive fecal occult blood test: Admission and Anticipated Discharge Date Admission Date: June 06, 2021 Supervising Physician Co-Signing Physician Notes I have seen and examined the patient with YIMI Frias whose note reflects our findings and plan. EGD and colonoscopy tomorrow. Prep to be initiated today. Subjective Pt anxious this AM. Denies GI s/s. No abd pain No nausea, vomiting No episodes of rectal bleeding HgB 10.5 s/p RBC x 2 units Review of Systems Review of Systems: All systems reviewed & are unremarkable except as noted in HPI & below Physical Exam Constitutional: WD/WN, vitals as above Respiratory: normal respiratory effort, lungs clear to auscultation Gastrointestinal (Abdomen): normal bowel sounds, soft, nontender, no hepatosplenomegaly Results & Data ([facility]) Vital Signs (Past 12 Hours) Vital Signs Temp Pulse Pulse Resp BP Pulse Ox 06/07/21 07:56 36.6 C 76 18 142/83 H 96 06/07/21 03:16 36.8 C 81 20 152/83 H 94 06/06/21 23:34 36.5 C 71 18 144/72 H 96 06/06/21 23:00 75 Laboratory Results 06/07/21 06/07/21 06/07/21 Range/Units 05:40 05:40 05:40 WBC 7.48 (4.8-10.8) K/uL RBC 4.56 (4.2-5.4) M/uL Hgb 10.5 L (12.0-16.0) g/dL Hct 34.2 L (37-47) % MCV 75.0 L (80-100) fL MCH 23.0 L (25-34) pg MCHC 30.7 L (32-36) g/dL RDW Std Deviation 51.9 H (36.4-46.3) fL RDW Coeff of Jessica 18.9 H (11.5-14.5) % Plt Count 288 (130-400) K/uL MPV 9.9 (7.4-10.4) fL Immature Gran % (Auto) % Neut % (Auto) % Lymph % (Auto) % [place] % (Auto) % Eos % (Auto) % Baso % (Auto) % Reticulocyte % (Auto) (0.5-2.0) % Neut # (Auto) (1.4-6.5) K/uL Lymph # (Auto) (1.2-3.4) K/uL [place] # (Auto) (0.11-0.59) K/uL Eos # (Auto) (0-0.5) K/uL Baso # (Auto) (0-0.2) K/uL Reticulocyte # (0.02-0.10) 10^6/uL Immature Gran # (Auto) (0.00-0.02) K/uL Hypochromasia Microcytosis Haptoglobin PT (9.0-12.0) Seconds INR (0.9-1.1) APTT (21.0-31.0) Seconds PTT Ratio Sodium 138 (136-145) mmol/L Potassium 3.3 L (3.5-5.1) mmol/L Chloride 105 (98-107) mmol/L Carbon Dioxide 24 (21-32) mmol/L Anion Gap 9.0 (3-11) BUN 10 (7-18) mg/dl Creatinine 0.78 (0.6-1.2) mg/dl Est Cr Clr Drug Dosing 61.1 Est GFR ( Amer) 89.9 ml/min Est GFR (Non-Af Amer) 77.6 ml/min BUN/Creatinine Ratio 13.1 (10-20) Glucose 99 (70-99) mg/dl Estimat Average Glucose 117 mg/dl Hemoglobin A1c 5.7 H (4.5-5.6) % Calcium 9.1 (8.5-10.1) mg/dl Magnesium 2.4 (1.8-2.4) mg/dl Total Bilirubin 1.8 H D (0.2-1) mg/dl Direct Bilirubin (0-0.2) mg/dl AST 19 (15-37) U/L ALT 21 (12-78) U/L Alkaline Phosphatase 80 (45-117) U/L Lactate Dehydrogenase (84-246) U/L Total Protein 8.4 H (6.4-8.2) gm/dl Albumin 4.1 (3.4-5.0) gm/dl Globulin 4.3 H (2.5-4.0) gm/dl Albumin/Globulin Ratio 1.0 (0.9-2) Vitamin B12 (193-986) pg/ml Folate (>5.38) ng/ml TSH (0.300-4.500) uIu/ml Urine Color Urine Appearance (Clear) Urine pH (4.5-7.5) Ur Specific [place] (1.000-1.030) Urine Protein (Negative) Urine Glucose (UA) (Negative) Urine Ketones (Negative) Urine Blood (Negative) Urine Nitrite (Negative) Urine Bilirubin (Negative) Urine Urobilinogen (Negative) Ur Leukocyte Esterase (Negative) COVID-19 Eval Order SARS-CoV-2 (PCR) (Negative) Hepatitis C Ab Screen Blood Type Blood Type Recheck Antibody Screen Crossmatch 06/07/21 06/06/21 06/06/21 Range/Units 05:40 18:25 15:15 WBC (4.8-10.8) K/uL RBC (4.2-5.4) M/uL Hgb 9.8 L (12.0-16.0) g/dL Hct 32.0 L (37-47) % MCV (80-100) fL MCH (25-34) pg MCHC (32-36) g/dL RDW Std Deviation (36.4-46.3) fL RDW Coeff of Jessica (11.5-14.5) % Plt Count (130-400) K/uL MPV (7.4-10.4) fL Immature Gran % (Auto) % Neut % (Auto) % Lymph % (Auto) % [place] % (Auto) % Eos % (Auto) % Baso % (Auto) % Reticulocyte % (Auto) (0.5-2.0) % Neut # (Auto) (1.4-6.5) K/uL Lymph # (Auto) (1.2-3.4) K/uL [place] # (Auto) (0.11-0.59) K/uL Eos # (Auto) (0-0.5) K/uL Baso # (Auto) (0-0.2) K/uL Reticulocyte # (0.02-0.10) 10^6/uL Immature Gran # (Auto) (0.00-0.02) K/uL Hypochromasia Microcytosis Haptoglobin PT (9.0-12.0) Seconds INR (0.9-1.1) APTT (21.0-31.0) Seconds PTT Ratio Sodium (136-145) mmol/L Potassium (3.5-5.1) mmol/L Chloride (98-107) mmol/L Carbon Dioxide (21-32) mmol/L Anion Gap (3-11) BUN (7-18) mg/dl Creatinine (0.6-1.2) mg/dl Est Cr Clr Drug Dosing Est GFR ( Amer) ml/min Est GFR (Non-Af Amer) ml/min BUN/Creatinine Ratio (10-20) Glucose (70-99) mg/dl Estimat Average Glucose mg/dl Hemoglobin A1c (4.5-5.6) % Calcium (8.5-10.1) mg/dl Magnesium (1.8-2.4) mg/dl Total Bilirubin (0.2-1) mg/dl Direct Bilirubin (0-0.2) mg/dl AST (15-37) U/L ALT (12-78) U/L Alkaline Phosphatase (45-117) U/L Lactate Dehydrogenase (84-246) U/L Total Protein (6.4-8.2) gm/dl Albumin (3.4-5.0) gm/dl Globulin (2.5-4.0) gm/dl Albumin/Globulin Ratio (0.9-2) Vitamin B12 (193-986) pg/ml Folate (>5.38) ng/ml TSH (0.300-4.500) uIu/ml Urine Color Yellow Urine Appearance Clear (Clear) Urine pH 7.5 (4.5-7.5) Ur Specific [place] 1.008 (1.000-1.030) Urine Protein Negative (Negative) Urine Glucose (UA) Negative (Negative) Urine Ketones Negative (Negative) Urine Blood Negative (Negative) Urine Nitrite Negative (Negative) Urine Bilirubin Negative (Negative) Urine Urobilinogen Negative (Negative) Ur Leukocyte Esterase Negative (Negative) COVID-19 Eval Order SARS-CoV-2 (PCR) (Negative) Hepatitis C Ab Screen Pending Blood Type Blood Type Recheck Antibody Screen Crossmatch 06/06/21 06/06/21 06/06/21 Range/Units 14:48 10:46 10:46 WBC (4.8-10.8) K/uL RBC (4.2-5.4) M/uL Hgb 7.9 L (12.0-16.0) g/dL Hct 26.9 L (37-47) % MCV (80-100) fL MCH (25-34) pg MCHC (32-36) g/dL RDW Std Deviation (36.4-46.3) fL RDW Coeff of Jessica (11.5-14.5) % Plt Count (130-400) K/uL MPV (7.4-10.4) fL Immature Gran % (Auto) % Neut % (Auto) % Lymph % (Auto) % [place] % (Auto) % Eos % (Auto) % Baso % (Auto) % Reticulocyte % (Auto) (0.5-2.0) % Neut # (Auto) (1.4-6.5) K/uL Lymph # (Auto) (1.2-3.4) K/uL [place] # (Auto) (0.11-0.59) K/uL Eos # (Auto) (0-0.5) K/uL Baso # (Auto) (0-0.2) K/uL Reticulocyte # (0.02-0.10) 10^6/uL Immature Gran # (Auto) (0.00-0.02) K/uL Hypochromasia Microcytosis Haptoglobin Pending PT (9.0-12.0) Seconds INR (0.9-1.1) APTT (21.0-31.0) Seconds PTT Ratio Sodium (136-145) mmol/L Potassium (3.5-5.1) mmol/L Chloride (98-107) mmol/L Carbon Dioxide (21-32) mmol/L Anion Gap (3-11) BUN (7-18) mg/dl Creatinine (0.6-1.2) mg/dl Est Cr Clr Drug Dosing Est GFR ( Amer) ml/min Est GFR (Non-Af Amer) ml/min BUN/Creatinine Ratio (10-20) Glucose (70-99) mg/dl Estimat Average Glucose mg/dl Hemoglobin A1c (4.5-5.6) % Calcium (8.5-10.1) mg/dl Magnesium (1.8-2.4) mg/dl Total Bilirubin (0.2-1) mg/dl Direct Bilirubin (0-0.2) mg/dl AST (15-37) U/L ALT (12-78) U/L Alkaline Phosphatase (45-117) U/L Lactate Dehydrogenase (84-246) U/L Total Protein (6.4-8.2) gm/dl Albumin (3.4-5.0) gm/dl Globulin (2.5-4.0) gm/dl Albumin/Globulin Ratio (0.9-2) Vitamin B12 (193-986) pg/ml Folate (>5.38) ng/ml TSH 0.862 (0.300-4.500) uIu/ml Urine Color Urine Appearance (Clear) Urine pH (4.5-7.5) Ur Specific [place] (1.000-1.030) Urine Protein (Negative) Urine Glucose (UA) (Negative) Urine Ketones (Negative) Urine Blood (Negative) Urine Nitrite (Negative) Urine Bilirubin (Negative) Urine Urobilinogen (Negative) Ur Leukocyte Esterase (Negative) COVID-19 Eval Order SARS-CoV-2 (PCR) (Negative) Hepatitis C Ab Screen Blood Type Blood Type Recheck Antibody Screen Crossmatch 06/06/21 06/06/21 06/06/21 Range/Units 10:46 10:46 10:46 WBC (4.8-10.8) K/uL RBC (4.2-5.4) M/uL Hgb (12.0-16.0) g/dL Hct (37-47) % MCV (80-100) fL MCH (25-34) pg MCHC (32-36) g/dL RDW Std Deviation (36.4-46.3) fL RDW Coeff of Jessica (11.5-14.5) % Plt Count (130-400) K/uL MPV (7.4-10.4) fL Immature Gran % (Auto) % Neut % (Auto) % Lymph % (Auto) % [place] % (Auto) % Eos % (Auto) % Baso % (Auto) % Reticulocyte % (Auto) 1.8 (0.5-2.0) % Neut # (Auto) (1.4-6.5) K/uL Lymph # (Auto) (1.2-3.4) K/uL [place] # (Auto) (0.11-0.59) K/uL Eos # (Auto) (0-0.5) K/uL Baso # (Auto) (0-0.2) K/uL Reticulocyte # 0.06 (0.02-0.10) 10^6/uL Immature Gran # (Auto) (0.00-0.02) K/uL Hypochromasia Microcytosis Haptoglobin PT (9.0-12.0) Seconds INR (0.9-1.1) APTT (21.0-31.0) Seconds PTT Ratio Sodium (136-145) mmol/L Potassium (3.5-5.1) mmol/L Chloride (98-107) mmol/L Carbon Dioxide (21-32) mmol/L Anion Gap (3-11) BUN (7-18) mg/dl Creatinine (0.6-1.2) mg/dl Est Cr Clr Drug Dosing Est GFR ( Amer) ml/min Est GFR (Non-Af Amer) ml/min BUN/Creatinine Ratio (10-20) Glucose (70-99) mg/dl Estimat Average Glucose mg/dl Hemoglobin A1c (4.5-5.6) % Calcium (8.5-10.1) mg/dl Magnesium (1.8-2.4) mg/dl Total Bilirubin (0.2-1) mg/dl Direct Bilirubin (0-0.2) mg/dl AST (15-37) U/L ALT (12-78) U/L Alkaline Phosphatase (45-117) U/L Lactate Dehydrogenase 166 (84-246) U/L Total Protein (6.4-8.2) gm/dl Albumin (3.4-5.0) gm/dl Globulin (2.5-4.0) gm/dl Albumin/Globulin Ratio (0.9-2) Vitamin B12 584 (193-986) pg/ml Folate 13.50 (>5.38) ng/ml TSH (0.300-4.500) uIu/ml Urine Color Urine Appearance (Clear) Urine pH (4.5-7.5) Ur Specific [place] (1.000-1.030) Urine Protein (Negative) Urine Glucose (UA) (Negative) Urine Ketones (Negative) Urine Blood (Negative) Urine Nitrite (Negative) Urine Bilirubin (Negative) Urine Urobilinogen (Negative) Ur Leukocyte Esterase (Negative) COVID-19 Eval Order SARS-CoV-2 (PCR) (Negative) Hepatitis C Ab Screen Blood Type Blood Type Recheck Antibody Screen Crossmatch 06/06/21 06/06/21 06/06/21 Range/Units 10:46 10:02 10:02 WBC (4.8-10.8) K/uL RBC (4.2-5.4) M/uL Hgb (12.0-16.0) g/dL Hct (37-47) % MCV (80-100) fL MCH (25-34) pg MCHC (32-36) g/dL RDW Std Deviation (36.4-46.3) fL RDW Coeff of Jessica (11.5-14.5) % Plt Count (130-400) K/uL MPV (7.4-10.4) fL Immature Gran % (Auto) % Neut % (Auto) % Lymph % (Auto) % [place] % (Auto) % Eos % (Auto) % Baso % (Auto) % Reticulocyte % (Auto) (0.5-2.0) % Neut # (Auto) (1.4-6.5) K/uL Lymph # (Auto) (1.2-3.4) K/uL [place] # (Auto) (0.11-0.59) K/uL Eos # (Auto) (0-0.5) K/uL Baso # (Auto) (0-0.2) K/uL Reticulocyte # (0.02-0.10) 10^6/uL Immature Gran # (Auto) (0.00-0.02) K/uL Hypochromasia Microcytosis Haptoglobin PT (9.0-12.0) Seconds INR (0.9-1.1) APTT (21.0-31.0) Seconds PTT Ratio Sodium (136-145) mmol/L Potassium (3.5-5.1) mmol/L Chloride (98-107) mmol/L Carbon Dioxide (21-32) mmol/L Anion Gap (3-11) BUN (7-18) mg/dl Creatinine (0.6-1.2) mg/dl Est Cr Clr Drug Dosing Est GFR ( Amer) ml/min Est GFR (Non-Af Amer) ml/min BUN/Creatinine Ratio (10-20) Glucose (70-99) mg/dl Estimat Average Glucose mg/dl Hemoglobin A1c (4.5-5.6) % Calcium (8.5-10.1) mg/dl Magnesium (1.8-2.4) mg/dl Total Bilirubin 0.5 (0.2-1) mg/dl Direct Bilirubin 0.1 (0-0.2) mg/dl AST 13 L (15-37) U/L ALT 20 (12-78) U/L Alkaline Phosphatase 72 (45-117) U/L Lactate Dehydrogenase (84-246) U/L Total Protein 7.6 (6.4-8.2) gm/dl Albumin 3.6 (3.4-5.0) gm/dl Globulin (2.5-4.0) gm/dl Albumin/Globulin Ratio (0.9-2) Vitamin B12 (193-986) pg/ml Folate (>5.38) ng/ml TSH (0.300-4.500) uIu/ml Urine Color Urine Appearance (Clear) Urine pH (4.5-7.5) Ur Specific [place] (1.000-1.030) Urine Protein (Negative) Urine Glucose (UA) (Negative) Urine Ketones (Negative) Urine Blood (Negative) Urine Nitrite (Negative) Urine Bilirubin (Negative) Urine Urobilinogen (Negative) Ur Leukocyte Esterase (Negative) COVID-19 Eval Order Covid19 at [facility] SARS-CoV-2 (PCR) NEGATIVE (Negative) Hepatitis C Ab Screen Blood Type Blood Type Recheck Antibody Screen Crossmatch 06/06/21 06/06/21 06/06/21 Range/Units 09:43 08:54 08:48 WBC (4.8-10.8) K/uL RBC (4.2-5.4) M/uL Hgb (12.0-16.0) g/dL Hct (37-47) % MCV (80-100) fL MCH (25-34) pg MCHC (32-36) g/dL RDW Std Deviation (36.4-46.3) fL RDW Coeff of Jessica (11.5-14.5) % Plt Count (130-400) K/uL MPV (7.4-10.4) fL Immature Gran % (Auto) % Neut % (Auto) % Lymph % (Auto) % [place] % (Auto) % Eos % (Auto) % Baso % (Auto) % Reticulocyte % (Auto) (0.5-2.0) % Neut # (Auto) (1.4-6.5) K/uL Lymph # (Auto) (1.2-3.4) K/uL [place] # (Auto) (0.11-0.59) K/uL Eos # (Auto) (0-0.5) K/uL Baso # (Auto) (0-0.2) K/uL Reticulocyte # (0.02-0.10) 10^6/uL Immature Gran # (Auto) (0.00-0.02) K/uL Hypochromasia Microcytosis Haptoglobin PT (9.0-12.0) Seconds INR (0.9-1.1) APTT (21.0-31.0) Seconds PTT Ratio Sodium 137 (136-145) mmol/L Potassium 3.8 (3.5-5.1) mmol/L Chloride 107 (98-107) mmol/L Carbon Dioxide 24 (21-32) mmol/L Anion Gap 6.0 (3-11) BUN 11 (7-18) mg/dl Creatinine 0.74 (0.6-1.2) mg/dl Est Cr Clr Drug Dosing Not Reportable Est GFR ( Amer) 95.8 ml/min Est GFR (Non-Af Amer) 82.7 ml/min BUN/Creatinine Ratio 15.0 (10-20) Glucose 108 H (70-99) mg/dl Estimat Average Glucose mg/dl Hemoglobin A1c (4.5-5.6) % Calcium 9.0 (8.5-10.1) mg/dl Magnesium (1.8-2.4) mg/dl Total Bilirubin (0.2-1) mg/dl Direct Bilirubin (0-0.2) mg/dl AST (15-37) U/L ALT (12-78) U/L Alkaline Phosphatase (45-117) U/L Lactate Dehydrogenase (84-246) U/L Total Protein (6.4-8.2) gm/dl Albumin (3.4-5.0) gm/dl Globulin (2.5-4.0) gm/dl Albumin/Globulin Ratio (0.9-2) Vitamin B12 (193-986) pg/ml Folate (>5.38) ng/ml TSH (0.300-4.500) uIu/ml Urine Color Urine Appearance (Clear) Urine pH (4.5-7.5) Ur Specific [place] (1.000-1.030) Urine Protein (Negative) Urine Glucose (UA) (Negative) Urine Ketones (Negative) Urine Blood (Negative) Urine Nitrite (Negative) Urine Bilirubin (Negative) Urine Urobilinogen (Negative) Ur Leukocyte Esterase (Negative) COVID-19 Eval Order SARS-CoV-2 (PCR) (Negative) Hepatitis C Ab Screen Blood Type A Positive Blood Type Recheck A Positive Antibody Screen NEGATIVE Crossmatch See Detail 06/06/21 06/06/21 Range/Units 08:48 08:48 WBC 4.74 L (4.8-10.8) K/uL RBC 3.31 L (4.2-5.4) M/uL Hgb 6.8 L* (12.0-16.0) g/dL Hct 24.4 L (37-47) % MCV 73.7 L (80-100) fL MCH 20.5 L (25-34) pg MCHC 27.9 L (32-36) g/dL RDW Std Deviation 52.0 H (36.4-46.3) fL RDW Coeff of Jessica 19.1 H (11.5-14.5) % Plt Count 305 (130-400) K/uL MPV 10.0 (7.4-10.4) fL Immature Gran % (Auto) 0.2 % Neut % (Auto) 62.3 % Lymph % (Auto) 25.7 % [place] % (Auto) 7.2 % Eos % (Auto) 4.0 % Baso % (Auto) 0.6 % Reticulocyte % (Auto) (0.5-2.0) % Neut # (Auto) 2.95 (1.4-6.5) K/uL Lymph # (Auto) 1.22 (1.2-3.4) K/uL [place] # (Auto) 0.34 (0.11-0.59) K/uL Eos # (Auto) 0.19 (0-0.5) K/uL Baso # (Auto) 0.03 (0-0.2) K/uL Reticulocyte # (0.02-0.10) 10^6/uL Immature Gran # (Auto) 0.01 (0.00-0.02) K/uL Hypochromasia Present Microcytosis Present Haptoglobin PT 9.7 (9.0-12.0) Seconds INR 1.0 (0.9-1.1) APTT < 20.0 L (21.0-31.0) Seconds PTT Ratio 0.8 Sodium (136-145) mmol/L Potassium (3.5-5.1) mmol/L Chloride (98-107) mmol/L Carbon Dioxide (21-32) mmol/L Anion Gap (3-11) BUN (7-18) mg/dl Creatinine (0.6-1.2) mg/dl Est Cr Clr Drug Dosing Est GFR ( Amer) ml/min Est GFR (Non-Af Amer) ml/min BUN/Creatinine Ratio (10-20) Glucose (70-99) mg/dl Estimat Average Glucose mg/dl Hemoglobin A1c (4.5-5.6) % Calcium (8.5-10.1) mg/dl Magnesium (1.8-2.4) mg/dl Total Bilirubin (0.2-1) mg/dl Direct Bilirubin (0-0.2) mg/dl AST (15-37) U/L ALT (12-78) U/L Alkaline Phosphatase (45-117) U/L Lactate Dehydrogenase (84-246) U/L Total Protein (6.4-8.2) gm/dl Albumin (3.4-5.0) gm/dl Globulin (2.5-4.0) gm/dl Albumin/Globulin Ratio (0.9-2) Vitamin B12 (193-986) pg/ml Folate (>5.38) ng/ml TSH (0.300-4.500) uIu/ml Urine Color Urine Appearance (Clear) Urine pH (4.5-7.5) Ur Specific [place] (1.000-1.030) Urine Protein (Negative) Urine Glucose (UA) (Negative) Urine Ketones (Negative) Urine Blood (Negative) Urine Nitrite (Negative) Urine Bilirubin (Negative) Urine Urobilinogen (Negative) Ur Leukocyte Esterase (Negative) COVID-19 Eval Order SARS-CoV-2 (PCR) (Negative) Hepatitis C Ab Screen Blood Type Blood Type Recheck Antibody Screen Crossmatch
[2021-06-07] MEDS ORDERED: LAVAGE SOLUTION 4000ML PO SCH (14:30)
--- NOTE | 2021-06-07 15:45 | Hospitalist Progress Note ---
Date of Service June 07, 2021 Assessment & Plan (1) Symptomatic anemia: (2) Iron deficiency: (3) Positive fecal occult blood test: Plan: 71-year-old female who has significant past medical history of hyperlipidemia, GERD, depression, chronic back pain who presents to ED secondary to shortness of breath x1 month. She has noted progressive shortness of breath over the past month, but significantly worse over the past 2 weeks. Outpatient lab work revealed hemoglobin 6.8, ferritin 5, transferrin saturation 2, TIBC 561, iron 10, reticulocyte increased at 2.3%. Last hemoglobin was from 2014 and was 13.4 with normal indices Cologuard negative in 2017, no prior history of colonoscopy, endoscopy approximately 30 years ago. She does take 2 baby aspirin's daily, but otherwise no NSAID use. 1 glass of alcohol nightly. Continues to vape nicotine, but quit smoking 3 years ago. Per ED provider, "trace," positive Hemoccult in ED. Differential diagnoses include GIB, colorectal or gastric malignancy, celiac disease, pure nutritional deficiency, hemoglobinopathy, insufficient resorption, myeloproliferative disorder and among other etiologies Symptoms resolved after the entry units of blood Hemoglobin is 10.5 this morning GI evaluation noted. Patient was anxious about EGD and colonoscopy. Discussed this in great details with patient. Patient agrees to stay to have procedure done N.p.o. past midnight for procedure tomorrow Anemia work-up labs noted Anemia is microcytic Outpatient lab work revealed iron deficiency Plan to discharge on ferrous sulfate Nicotine Dependence w/ prior hx of tobacco abuse Quit smoking 3 years ago continues to vape nicotine daily Counselling provided Alcohol dependence has 4 oz of white wine nightly to help with back pain Monitor for now for any sign of withdrawal HLD Continue statin Elevated FBS 108 a1c is 5.7. Prediabetes Bilirubin total is elevated today at 1.8. Other LFT normal. Will check again in AM Mildly hypokalemic this AM. Replete and monitor DVT ppx: SCD/TEDS PCP: Danilo FULL CODE Admission and Anticipated Discharge Date Admission Date: June 06, 2021 Subjective 71-year-old woman with history of GERD, depression, chronic back pain who presents to the ED for shortness of breath month and fatigue that worsened over the past 2 weeks with outpatient labs showing hemoglobin of 6.8. Being managed for symptomatic anemia and iron deficiency. Patient seen and examined today. Reports symptoms has resolved since gotten 2 units of blood. Patient currently anxious about plan colonoscopy and EGD. Denies any melena or bright red blood per rectum Review of Systems Constitutional: no fever, no chills and no fatigue Eyes: no problem reported Ear, Nose, Mouth, Throat: no problem reported Respiratory: no cough, no dyspnea and no dyspnea on exertion Cardiovascular: no chest pain, no dyspnea, no dyspnea on exertion, no palpitations and no lightheadedness Gastrointestinal: no abdominal pain, no nausea, no vomiting, no coffee ground emesis, no hematemesis, no diarrhea/loose stools and no melena Genitourinary: no dysuria, no urinary frequency and no urinary incontinence Musculoskeletal: no joint pain Neurologic: no generalized weakness, no dizziness and no headache(s) Psychiatric: + anxiety; no depression Physical Exam Constitutional: + well hydrated; no acute distress Eyes: PERRL, conjunctivae normal, anicteric sclerae ENMT: external ear and nose normal, oropharynx normal Respiratory: normal respiratory effort, lungs clear to auscultation Cardiovascular: RRR, no murmur, no edema Gastrointestinal (Abdomen): normal bowel sounds, soft, nontender, no hepatosplenomegaly Musculoskeletal: no cyanosis or clubbing, extremities motor strength 5/5 Neurologic: PERRL, EOMI, accommodation nl, no face palsy, no dysarthria Psychiatric: A+Ox3, euthymic affect Genitourinary: no CVA tenderness Results & Data Results & Data ([facility]) Vital Signs (Past 12 Hours) Vital Signs Temp Pulse Pulse Resp BP Pulse Ox 06/07/21 11:08 36.7 C 78 18 146/87 H 93 06/07/21 10:20 73 06/07/21 07:56 36.6 C 76 18 142/83 H 96 Laboratory Results Abnormal lab results 06/06/21 06/06/21 06/07/21 Range/Units 08:54 18:25 05:40 Hgb 9.8 L 10.5 L (12.0-16.0) g/dL Hct 32.0 L 34.2 L (37-47) % MCV 75.0 L (80-100) fL MCH 23.0 L (25-34) pg MCHC 30.7 L (32-36) g/dL RDW Std Deviation 51.9 H (36.4-46.3) fL RDW Coeff of Jessica 18.9 H (11.5-14.5) % Potassium (3.5-5.1) mmol/L Hemoglobin A1c (4.5-5.6) % Total Bilirubin (0.2-1) mg/dl Total Protein (6.4-8.2) gm/dl Globulin (2.5-4.0) gm/dl Crossmatch See Detail 06/07/21 06/07/21 Range/Units 05:40 05:40 Hgb (12.0-16.0) g/dL Hct (37-47) % MCV (80-100) fL MCH (25-34) pg MCHC (32-36) g/dL RDW Std Deviation (36.4-46.3) fL RDW Coeff of Jessica (11.5-14.5) % Potassium 3.3 L (3.5-5.1) mmol/L Hemoglobin A1c 5.7 H (4.5-5.6) % Total Bilirubin 1.8 H D (0.2-1) mg/dl Total Protein 8.4 H (6.4-8.2) gm/dl Globulin 4.3 H (2.5-4.0) gm/dl Crossmatch
[2021-06-07] MEDS: ATORVASTATIN 40 MG TAB PO SCH (21:03)
[2021-06-07] MEDS: LIDOCAINE 5% 1 PATCH TD SCH (21:05)
[2021-06-08] MEDS: PANTOprazole 40 MG TAB PO SCH (07:48)
[2021-06-08] MEDS: FERROUS SULFATE 325 MG TAB PO SCH (07:48)
[2021-06-08] MEDS: ASCORBIC ACID 500 MG TAB PO SCH (07:48)
--- NOTE | 2021-06-08 08:58 | Anesthesiology Consultation ---
Date of Service June 08, 2021 Assessment & Plan (1) Encounter for pre-operative examination: Chart Review Chart Review: Acceptable Risk for Surgery, Patient NOT seen in Pre Admission Testing and entry level management initiated Consults Requested none Proposed Anesthesia Risk / Benefits Reviewed With: PT / POA / Parent / Guardian, Accepts Plan and Informed Consent Obtained History Surgery Operation Date: 06/08/21 16:30 Proposed Procedures p Colonoscopy EGD Dr Astorga - Desiree Astorga, DO Height/Weight Height: 5 ft 2 in Weight: 66.8 kg Allergies Allergy/AdvReac Type Severity Reaction Status Date / Time latex Allergy Rash Verified 06/06/21 19:08 codeine AdvReac Severe Nausea and Unverified 06/06/21 09:33 Vomiting/Drowsiness/Lethargy escitalopram [From Lexapro] AdvReac Intermediate Brain Verified 06/06/21 10:20 Foggieness/Shakiness Medications Home Medications Medication Instructions Recorded Confirmed Last Taken Lactobacillus acidophilus 10 10,000 mmu cells PO DAILY 06/06/21 06/06/21 06/05/21 billion cell capsule (Probiotic) acetaminophen 650 mg 650 - 1,300 mg PO HS PRN 06/06/21 06/06/21 06/06/21 tablet,extended release (Tylenol Arthritis Pain) aspirin 81 mg tablet,delayed 162 mg PO DAILY 06/06/21 06/06/21 06/06/21 release atorvastatin 40 mg tablet 40 mg PO HS 06/06/21 06/06/21 06/05/21 lidocaine 5 % topical patch 1 patch TRANSDERMAL HS 06/06/21 06/06/21 06/05/21 Active Medications Generic Name Dose Route Start Last Admin Trade Name Freq PRN Reason Stop Dose Admin Ascorbic Acid 500 mg 06/06/21 17:00 06/08/21 07:48 Ascorbic Acid 500 Mg Tab PO 07/06/21 16:59 500 mg BIDM BRENDAN Administration Atorvastatin Calcium 40 mg 06/06/21 21:00 06/07/21 21:03 Atorvastatin 40 Mg Tab PO 07/06/21 20:59 40 mg HS BRENDAN Administration Ferrous Sulfate 325 mg 06/06/21 17:00 06/08/21 07:48 Ferrous Sulfate 325 Mg Tab PO 07/06/21 16:59 325 mg BIDM BRENDAN Administration Lidocaine 1 patch 06/06/21 21:00 06/07/21 21:05 Lidocaine 5% 1 Patch TD 07/06/21 20:59 1 patch HS BRENDAN Administration Miscellaneous 1 ea 06/07/21 09:00 06/08/21 07:48 Remove Lidoderm Patch N/A 07/07/21 08:59 1 ea DAILY@0900 BRENDAN Administration Miscellaneous 1 ea 06/06/21 14:34 06/08/21 07:52 Remove Nicoderm Patch N/A 07/06/21 14:33 1 ea DAILY@0859 PRN Administration nicotine craving Nicotine 14 mg 06/06/21 14:34 06/07/21 09:42 Nicotine 14 Mg/24 Hr Patch TD 07/06/21 14:33 14 mg QAM PRN Administration nicotine craving Pantoprazole Sodium 40 mg 06/07/21 09:00 06/08/21 07:48 Pantoprazole 40 Mg Tab PO 07/07/21 08:59 40 mg QAM BRENDAN Administration Past Medical History Medical History (Updated 06/08/21 @ 09:02 by Hussain Hebert MD) Depression GERD (gastroesophageal reflux disease) Hypercholesterolemia Iron deficiency Positive fecal occult blood test Symptomatic anemia Past Family History Family History Father Diabetes Mother Diabetes Myocardial infarction Grandfather (Paternal) Stomach cancer Past Surgical History Surgical History History of appendectomy History of History of hysterectomy complete Social History Smoking Status: Former smoker tobacco type: cigarettes and e-cigarettes Hx Alcohol Use: Yes Alcohol type: wine alcohol intake frequency: 0-2 drinks per day Hx Substance Use: No substance use type: does not use Physical Exam Vital Signs Last Vital Signs Temp 36.5 C 06/08/21 08:17 Pulse 79 06/08/21 08:17 Resp 18 06/08/21 08:17 BP 130/80 06/08/21 08:17 Pulse Ox 95 06/08/21 03:36 Testing Laboratory Results PT 9.7 Seconds (9.0-12.0) 06/06/21 08:48 INR 1.0 (0.9-1.1) 06/06/21 08:48 APTT < 20.0 Seconds (21.0-31.0) L 06/06/21 08:48 Hemoglobin A1c 5.7 % (4.5-5.6) H 06/07/21 05:40 Urine Color Yellow 06/06/21 15:15 Urine Appearance Clear (Clear) 06/06/21 15:15 Urine pH 7.5 (4.5-7.5) 06/06/21 15:15 Ur Specific [place] 1.008 (1.000-1.030) 06/06/21 15:15 Urine Protein Negative (Negative) 06/06/21 15:15 Urine Glucose (UA) Negative (Negative) 06/06/21 15:15 Urine Ketones Negative (Negative) 06/06/21 15:15 Urine Nitrite Negative (Negative) 06/06/21 15:15 Ur Leukocyte Esterase Negative (Negative) 06/06/21 15:15 Blood Type A Positive 06/06/21 08:54 Antibody Screen NEGATIVE 06/06/21 08:54 Electrocardiogram Date: 06/06/21 Poor data quality, interpretation may be adversely affected Normal sinus rhythm Normal ECG No previous ECGs available Chest X-Ray Date: 06/06/21 XR chest 1V portable HISTORY: 71 years-old Female admission preoperative exam. No acute chest complaints COMPARISON: None TECHNIQUE: Portable AP view of the chest FINDINGS: Cardiac silhouette is enlarged. The patient is mildly rotated. No pneumothorax, pleural effusion, airspace consolidation or overt pulmonary edema. Pulmonary hyperinflation. A 1.7 cm nodular opacity projects over the left upper lung. There is a linear 1.5 cm opacity of the left lung base which may be artifactual/external to the patient. Degenerative changes of the shoulders and spine with mid thoracic dextroscoliosis. IMPRESSION: 1. Hyperinflation without acute process. 2. Cardiomegaly. 3. Indeterminate 1.7 cm linear nodular opacity of the left upper lung.
[2021-06-08 08:59] LABS: Hematocrit (blood only) 31.2 % (37-47); Hemoglobin 9.3 g/dL (12.0-16.0); Mean Corpuscular Hemoglobin 22.7 pg (25-34); Mean Corpuscular Hgb Conc 29.8 g/dL (32-36); Mean Corpuscular Volume 76.1 fL (80-100); Mean Platelet Volume 10.6 fL (7.4-10.4); Nucleated RBC # (auto) 0.03 K/uL (0-0); Nucleated RBC % (auto) 0.6 %; Platelet Count 283 K/uL (130-400); RDW Coefficient of Variation 19.2 % (11.5-14.5); RDW Standard Deviation 53.3 fL (36.4-46.3); White Blood Count 5.81 K/uL (4.8-10.8)
[2021-06-08 09:50] LABS: Albumin Level 3.7 gm/dl (3.4-5.0); BUN Creatinine Ratio 11.8 (10-20); Bilirubin Direct 0.2 mg/dl (0-0.2); Calcium 9.3 mg/dl (8.5-10.1); Creatinine Clr Calc Pharmacy 66.1 ml/min; Est GFR (Non-African American) 85.4 ml/min; Potassium 3.6 mmol/L (3.5-5.1); Total Protein 7.8 gm/dl (6.4-8.2)
--- NOTE | 2021-06-08 10:36 | History & Physical Report ---
Date of Service June 08, 2021 Assessment & Plan (1) Iron deficiency: Plan: EGD and colonoscopy today (2) Positive fecal occult blood test: Admission and Anticipated Discharge Date Admission Date: June 06, 2021 History of Present Illness Chief Complaint: anemia Primary Care Provider: Jon Carrasco MD anemia Allergies Allergy/AdvReac Type Severity Reaction Status Date / Time latex Allergy Rash Verified 06/08/21 10:27 codeine AdvReac Severe Nausea and Unverified 06/08/21 10:27 Vomiting/Drowsiness/Lethargy escitalopram [From Lexapro] AdvReac Intermediate Brain Verified 06/08/21 10:27 Foggieness/Shakiness Home Medications Medication Instructions Recorded Confirmed Type Lactobacillus acidophilus 10 10,000 mmu cells PO DAILY 06/06/21 06/06/21 History billion cell capsule (Probiotic) acetaminophen 650 mg 650 - 1,300 mg PO HS PRN 06/06/21 06/06/21 History tablet,extended release (Tylenol Arthritis Pain) aspirin 81 mg tablet,delayed 162 mg PO DAILY 06/06/21 06/06/21 History release atorvastatin 40 mg tablet 40 mg PO HS 06/06/21 06/06/21 History lidocaine 5 % topical patch 1 patch TRANSDERMAL HS 06/06/21 06/06/21 History Past Med/Surg History Medical History (Updated 06/08/21 @ 09:02 by Hussain Hebert MD) Depression GERD (gastroesophageal reflux disease) Hypercholesterolemia Iron deficiency Positive fecal occult blood test Symptomatic anemia Surgical History History of appendectomy History of History of hysterectomy complete Family History Father Diabetes Mother Diabetes Myocardial infarction Grandfather (Paternal) Stomach cancer Social History (Updated 06/06/21 @ 10:25 by Kiera Godoy PA-C) Smoking Status: Former smoker Tobacco Type: Cigarettes and E-cigarettes / Vaping Number of Years Since Quit: 3; Hx Alcohol Use: Yes Alcohol type: wine Alcohol Intake Frequency Comment: 4 ounces at night Hx Substance Use: No Preferred Language: Ukrainian Communication Ability: Effective 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 Beliefs That Will Affect Care: None marital status: Current Living Situation: Spouse Other Information That Helps Us Care for You: No Feels Safe at Home: Yes Safety Concerns: Feels Safe At This Time Assistive Devices: Glasses Review of Systems All systems reviewed & are unremarkable except as noted in HPI & below Physical Exam Constitutional: WD/WN, vitals as above Respiratory: normal respiratory effort, lungs clear to auscultation Cardiovascular: RRR, no murmur, no edema Gastrointestinal (Abdomen): normal bowel sounds, soft, nontender, no hepatosplenomegaly Results & Data ([facility]) Vital Signs (Past 12 Hours) Vital Signs Temp Pulse Pulse Pulse Resp BP Pulse Ox 06/08/21 10:29 36.6 C 83 18 150/101 H 97 06/08/21 08:17 36.5 C 79 18 130/80 06/08/21 07:00 79 06/08/21 03:36 36.8 C 78 17 146/76 H 95 06/08/21 00:05 73 06/07/21 23:27 36.7 C 85 17 152/80 H 99 Code Status & VTE Plan VTE Prophylaxis Plan VTE Prophylaxis will be ordered: Yes
[2021-06-08] MEDS ORDERED: LIDOCAINE 2% 2 ML VIAL/AMP(20MG/ML) INFIL ONE (10:38)
[2021-06-08] MEDS ORDERED: PROPOFOL IV EMULSION 10 MG/ML 20 ML VIAL IV ONE ×2 (10:38→11:17)
--- NOTE | 2021-06-08 11:20 | GI REPORT ---
Patient Name: Fauzia Foss Procedure Date: 06/08/2021 10:48 AM Date of : 1950 Admit Type: Inpatient Age: 71 Gender: Female Attending MD: Desiree Astorga DO Procedure: Upper GI endoscopy Providers: Desiree Astorga DO Referring MD: Referred Self Indications: Iron deficiency anemia Medicines: Propofol per Anesthesia Complications: No immediate complications. Estimated blood loss: None. Estimated Blood Loss: Estimated blood loss: none. Procedure: Pre-Anesthesia Assessment: - Prior to the procedure, a History and Physical was performed, and patient medications, allergies and sensitivities were reviewed. The patient's tolerance of previous anesthesia was reviewed. - The risks and benefits of the procedure and the sedation options and risks were discussed with the patient. All questions were answered and informed consent was obtained. - Patient identification and proposed procedure were verified prior to the procedure by the physician and the nurse. The procedure was verified in the pre-procedure area in the procedure room. - Mental Status Examination: alert and oriented. Airway Examination: normal oropharyngeal airway and neck mobility. Respiratory Examination: clear to auscultation. CV Examination: normal. Abdominal Examination: bowel sounds present, abdomen soft and non-tender, no masses or organomegaly noted. - ASA Grade Assessment: III - A patient with severe systemic disease. After obtaining informed consent, the endoscope was passed under direct vision. Throughout the procedure, the patient's blood pressure, pulse, and oxygen saturations were monitored continuously. The Colonoscope was introduced through the mouth, and advanced to the second part of duodenum. The upper GI endoscopy was accomplished without difficulty. The patient tolerated the procedure well. Findings: The esophagus was normal. The stomach was normal. The examined duodenum was normal. Impression: - Normal esophagus. - Normal stomach. - Normal examined duodenum. - No specimens collected. Recommendation: - Perform a colonoscopy today. Desiree Astorga D.O. Desiree Astorga DO 06/08/2021 11:19:27 AM This report has been signed electronically. Note Initiated On: 06/08/2021 10:48 AM Number of Addenda: 0 I attest to the content of the Intraoperative Record and orders documented therein, exceptions below {[id number]}
--- NOTE | 2021-06-08 11:23 | GI REPORT ---
Patient Name: Fauzia Foss Procedure Date: 06/08/2021 10:46 AM Date of : 1950 Admit Type: Inpatient Age: 71 Gender: Female Attending MD: Desiree Astorga DO Procedure: Colonoscopy Providers: Desiree Astorga DO Referring MD: Referred Self Indications: Iron deficiency anemia Medicines: Propofol per Anesthesia Complications: No immediate complications. Estimated blood loss: Minimal. Estimated Blood Loss: Estimated blood loss was minimal. Procedure: Pre-Anesthesia Assessment: - Prior to the procedure, a History and Physical was performed, and patient medications, allergies and sensitivities were reviewed. The patient's tolerance of previous anesthesia was reviewed. - The risks and benefits of the procedure and the sedation options and risks were discussed with the patient. All questions were answered and informed consent was obtained. - Patient identification and proposed procedure were verified prior to the procedure by the physician and the nurse. The procedure was verified in the pre-procedure area in the procedure room. - Mental Status Examination: alert and oriented. Airway Examination: normal oropharyngeal airway and neck mobility. Respiratory Examination: clear to auscultation. CV Examination: normal. Abdominal Examination: bowel sounds present, abdomen soft and non-tender, no masses or organomegaly noted. - ASA Grade Assessment: III - A patient with severe systemic disease. After I obtained informed consent, the scope was passed under direct vision. Throughout the procedure, the patient's blood pressure, pulse, and oxygen saturations were monitored continuously. The Colonoscope was introduced through the anus and advanced to the cecum, identified by appendiceal orifice and ileocecal valve. The colonoscopy was performed without difficulty. The patient tolerated the procedure well. The quality of the bowel preparation was good. Findings: The perianal and digital rectal examinations were normal. Pertinent negatives include normal sphincter tone and no palpable rectal lesions. A 6 mm polyp was found in the ascending colon. The polyp was sessile. The polyp was removed with a cold snare. Resection and retrieval were complete. Verification of patient identification for the specimen was done by the physician and nurse using the patient's name and date. Estimated blood loss was minimal. A moderate amount of semi-liquid stool was found in the entire colon. The retroflexed view of the distal rectum and anal verge was normal and showed no anal or rectal abnormalities. Impression: - One 6 mm polyp in the ascending colon, removed with a cold snare. Resected and retrieved. - Stool in the entire examined colon. - The distal rectum and anal verge are normal on retroflexion view. Recommendation: - Await pathology results. - Repeat colonoscopy in 1 year because the bowel preparation was suboptimal and for surveillance. - Return to primary care physician as previously scheduled. - Discharge patient to home. Desiree Astorga D.O. Desiree Astorga, 06/08/2021 11:23:13 AM This report has been signed electronically. Note Initiated On: 06/08/2021 10:46 AM Number of Addenda: 0 I attest to the content of the Intraoperative Record and orders documented therein, exceptions below {[id number]}
--- NOTE | 2021-06-08 11:50 | Anesthesiology Progress Note ---
Date of Service June 08, 2021 Anesthesia Post Procedure Vital Signs Vital Signs: Temp Pulse Pulse Pulse Resp BP Pulse Ox 06/08/21 11:44 70 20 136/79 99 06/08/21 11:30 66 20 123/69 97 06/08/21 11:15 75 16 116/59 L 97 06/08/21 10:29 36.6 C 83 18 150/101 H 97 06/08/21 08:17 36.5 C 79 18 130/80 06/08/21 07:00 79 06/08/21 03:36 36.8 C 78 17 146/76 H 95 06/08/21 00:05 73 06/07/21 23:27 36.7 C 85 17 152/80 H 99 06/07/21 19:41 36.6 C 83 18 183/80 H 96 06/07/21 16:57 36.6 C 81 18 153/81 H 98 Pain Intensity Lower Back: Pain Intensity: 3 Transfer of Care Handoff Completed per policy Notes Mental Status: alert / awake / arousable and participated in evaluation Patient Amnestic to Procedure: Yes Nausea / Vomiting: adequately controlled Pain: adequately controlled Airway Patency, RR, SpO2: stable & adequate BP & HR: stable & adequate Hydration State: stable & adequate Anesthetic Complications: no major complications apparent and Pt Satisfied with anesthetic care
--- NOTE | 2021-06-08 13:21 | Discharge Summary ---
Date of Service June 08, 2021 Admission HPI Per Admitting Provider This is a 71-year-old female who has significant past medical history of hyperlipidemia, GERD, depression, chronic back pain who presents to ED secondary to shortness of breath x1 month. She has noted progressive shortness of breath over the past month, but significantly worse over the past 2 weeks. Yesterday she was making dinner and just walking [id number] from the table which caused her to be short of breath. She also complains of extreme fatigue that she has never experienced in the past. She was seen and evaluated by PCP yesterday who did lab work which revealed a critical hemoglobin of 6.8 and maritza re iron deficiency with a ferritin of 5. She was recommended to go to ER for transfusion and further work-up. She denies any recent fever, chills, sweats, lightheadedness, dizziness, syncope, chest pain, cough, hemoptysis, emesis, abdominal pain, melena, hematochezia, dysuria, increased urgency or frequency with urination or hematuria. She does admit to being nauseated yesterday but felt that was secondary to the stress of her illness. She denies any weight loss and admits to gaining 20 pounds approximately 2 years ago after being started on gabapentin for her back pain. She has been unable to get off the 20 pounds and she gained it. She denies any prior history of colonoscopy but did have an endoscopy approximately 30 years ago. Denies any history of peptic ulcer disease. She did have a Cologuard in 2017 which was negative. Positive family history of stomach cancer but denies any history of colon cancer. She tries to reduce her red meat intake but denies being vegetarian or vegan. She states she feels she has a history of IBS secondary to having 3 bowel movements daily. Occasionally bowel movements are mucousy. She denies any formal work-up for this. In ED patient remained hemodynamically stable. Her hemoglobin was confirmed at 6.8 with significant microcytosis. She also had mild reduction in her white blood cell count of 4.74. Her BMP was generally unremarkable except for a mild elevated glucose at 108. In ED she was typed and crossed and Per ED provider her FOBT was positive. She was crossed for 2 units. She did have a couple coffee this morning but otherwise has not had anything to eat. She does take 2 baby aspirin daily preventatively, denies history of coronary artery disease or cerebrovascular disease. She denies taking any NSAIDs or Motrin daily. She does have 4 ounce glass of wine nightly. Admission Exam Per Admitting Provider Constitutional: WD/WN, female, pale, vitals as above, NAD, sitting up in bed, pleasant, conversing easily Head: Normocephalic, Atraumatic Eyes: PERRL, conjunctivae normal, anicteric sclerae ENMT: external ear and nose normal, oropharynx normal Neck: trachea midline, no thyromegaly normal visual inspection Respiratory: normal respiratory effort, lungs clear to auscultation, no wheeze, rales, rhonchi. Normal insp/exp effort, no accessory muscle use Cardiovascular: RRR, 1/6 ROBERTO noted RUSB, suspect flow murmur secondary to anemia, no edema Vessels: no JVD or carotid bruit Chest: normal inspection of chest Abdomen: normal bowel sounds, soft, nontender, no hepatosplenomegaly Musculoskeletal: no cyanosis or clubbing, extremities motor strength 5/5 Skin: no rashes, warm and dry normal turgor Neurologic: PERRL, EOMI, accommodation nl, no face palsy, no dysarthria CN's II-XI intact bilaterally and moves all extremities Psychiatric: A+Ox3, euthymic affect Lymphatic: no cervical or axillary lymphadenopathy : deferred Principal Diagnosis Symptomatic anemia Iron deficiency anemia Discharge Exam Constitutional + well hydrated; no acute distress Eyes PERRL, conjunctivae normal, anicteric sclerae ENMT external ear and nose normal, oropharynx normal Respiratory normal respiratory effort, lungs clear to auscultation Cardiovascular RRR, no murmur, no edema Gastrointestinal (Abdomen) normal bowel sounds, soft, nontender, no hepatosplenomegaly Musculoskeletal no cyanosis or clubbing, extremities motor strength 5/5 Neurologic PERRL, EOMI, accommodation nl, no face palsy, no dysarthria Psychiatric A+Ox3, euthymic affect Genitourinary no CVA tenderness Discharge Data Allergies Allergy/AdvReac Type Severity Reaction Status Date / Time latex Allergy Rash Verified 06/08/21 10:27 codeine AdvReac Severe Nausea and Unverified 06/08/21 10:27 Vomiting/Drowsiness/Lethargy escitalopram [From Lexapro] AdvReac Intermediate Brain Verified 06/08/21 10:27 Foggieness/Shakiness Consultations 06/06/21 09:29 ED Decision to Admit Stat 06/06/21 09:38 Consult Gastroenterology Routine Procedures Performed Operation Date: 06/08/21 16:30 Actual Procedures p Esophagogastroduodenoscopy - Desiree TEver Astorga, DO Findings: The esophagus was normal. The stomach was normal. The examined duodenum was normal. Impression: - Normal esophagus. - Normal stomach. - Normal examined duodenum. - No specimens collected. s Colonoscopy Polypectomy - Desiree TEver Astorga, DO Findings: The perianal and digital rectal examinations were normal. Pertinent negatives include normal sphincter tone and no palpable rectal lesions. A 6 mm polyp was found in the ascending colon. The polyp was sessile. The polyp was removed with a cold snare. Resection and retrieval were complete. Verification of patient identification for the specimen was done by the physician and nurse using the patient's name and date. Estimated blood loss was minimal. A moderate amount of semi-liquid stool was found in the entire colon. The retroflexed view of the distal rectum and anal verge was normal and showed no anal or rectal abnormalities. Impression: - One 6 mm polyp in the ascending colon, removed with a cold snare. Resected and retrieved. - Stool in the entire examined colon. - The distal rectum and anal verge are normal on retroflexion view. Recommendation: - Await pathology results. - Repeat colonoscopy in 1 year because the bowel preparation was suboptimal and for surveillance. - Return to primary care physician as previously scheduled. - Discharge patient to home. Hospital Course (1) Symptomatic anemia: (2) Iron deficiency: (3) Positive fecal occult blood test: 71-year-old female who has significant past medical history of hyperlipidemia, GERD, depression, chronic back pain who presents to ED secondary to shortness of breath x1 month. She has noted progressive shortness of breath over the past month, but significantly worse over the past 2 weeks. Outpatient lab work revealed hemoglobin 6.8, ferritin 5, transferrin saturation 2, TIBC 561, iron 10, reticulocyte increased at 2.3%. Last hemoglobin was from 2014 and was 13.4 with normal indices Cologuard negative in 2017, no prior history of colonoscopy, endoscopy approximately 30 years ago. She does take 2 baby aspirin's daily, but otherwise no NSAID use. 1 glass of alcohol nightly. Continues to vape nicotine, but quit smoking 3 years ago. Per ED provider, "trace," positive Hemoccult in ED. Differential diagnoses include GIB, colorectal or gastric malignancy, celiac disease, pure nutritional deficiency, hemoglobinopathy, insufficient resorption, myeloproliferative disorder and among other etiologies Symptoms resolved after the entry units of blood Hemoglobin is 9.3 this morning Anemia work-up labs noted Anemia is microcytic Outpatient lab work revealed iron deficiency EGD was normal Colonoscopy showed a polyp which was resected. Patient and PCP to follow-up results of pathology Will need colonoscopy in a year Discharged on iron sulfate Nicotine Dependence w/ prior hx of tobacco abuse Quit smoking 3 years ago continues to vape nicotine daily Counselling provided Alcohol dependence has 4 oz of white wine nightly to help with back pain Monitor for now for any sign of withdrawal HLD Continue statin Elevated FBS 108 a1c is 5.7. Prediabetes Total Time Total Time Spent Total Time Spent (In Minutes): 45 Total Time Includes: Examination of the Patient, Discharge Planning and Medication Reconciliation Discharge Plan Discharge Items Patient Disposition: Home - Self-Care Reason For Visit: ANEMIA Discharge Diagnosis: Symptomatic anemia Iron deficiency anemia Activity: Resume your previous activity Non-emergency contact: Primary Care Provider Call non-emergency contact if: you have any medication questions and your symptoms worsen Follow-up/Referrals: Jon Carrasco MD [Primary Care Provider] - Diet: Regular Addtl Attending Provider Instructions: Mrs. Foss You presented to the hospital with shortness of breath that worsened recently and recent lab work that showed blood levels and iron levels. You required 2 units of blood and your symptoms resolved. You also had an upper endoscopy and colonoscopy. You had one polyp which was removed and sent to the lab by the pathologist. You are being discharged home to follow-up with your primary care doctor. You are being discharged on iron tablets. Please follow-up the results of polyp with your primary doctor. You will need a repeat colonoscopy in 1 year. Your Primary doctor will continue to monitor your anemia and recovery. It was a pleasure taking care of you Pending Studies at Discharge: Yes Stand-Alone [facility]: [facility], Smoking Cessation Medications and DC Order Prescriptions: New ascorbic acid (vitamin C) [Vitamin C] 500 mg Tablet 500 mg PO BIDM Qty: 60 RF: 0 ferrous sulfate 325 mg (65 mg iron) Tablet,Delayed Release (Dr/Ec) 325 mg PO BIDM Qty: 60 RF: 0 Continued atorvastatin 40 mg tablet 40 mg PO HS RF: 0 aspirin 81 mg Tablet,Delayed Release (Dr/Ec) 162 mg PO DAILY RF: 0 acetaminophen [Tylenol Arthritis Pain] 650 mg Tablet Extended Release 650 - 1,300 mg PO HS PRN (Reason: sleep and pain) RF: 0 lidocaine 5 % adhesive patch,medicated 1 patch transdermal HS RF: 0 Probiotic 10 billion cell Capsule 10,000 mmu cells PO DAILY RF: 0 Discharge Orders: Discharge Order (Routine); Ordered 06/08/21 Ordered By: Lori Addison Admission Data Admit Date/Time: 06/06/21 09:38 Attending Provider: Lori Addison I. Admit Provider: Aldo Grimes Primary Care Provider: Jon Carrasco Other Providers: Desiree Astorga ; Aldo Grimes Other Interventions: Discharge Summary Assessment (RN) Last Done: 06/08/21 14:09
--- NOTE | 2021-06-09 05:44 | Electrocardiogram Report ---
Test Reason : Blood Pressure : / mmHG Vent. Rate : 076 BPM Atrial Rate : 076 BPM P-R Int : 128 ms QRS Dur : 082 ms QT Int : 414 ms P-R-T Axes : 026 017 020 degrees QTc Int : 465 ms Poor data quality, interpretation may be adversely affected Normal sinus rhythm Normal ECG No previous ECGs available Confirmed by Jose G Wisdom ([id number]) on 06/09/2021 5:43:54 AM Referred By: REFERRED SELF Confirmed By:Jose G Wisdom
== END 2021-06-08 14:44 | disposition home or self-care (01) | DRG 641 ==
LOC: ED 08:10 → EDINP 09:38 → SUATTDRO 09:38 → 2S 14:13